=== PATIENT | male | born 1965 | race Caucasian/White ===

== ENCOUNTER 2021-03-14 08:47 | Inpatient (IN) | payer MEDICARE, MEDICAID, SELFPAY ==
[2021-03-14] VITALS (18 sets, daily range): BP systolic 103–152; BP diastolic 48–86; PULSE 78–102; RESP 13–26; TEMP 36.3–37.3; O2SAT 90–100; BMI 26.5
--- NOTE | ~2021-03-14 | CT_ITS ---
EXAMINATION: CT diagnostic chest w con DATE: 03/15/2021 16:29 INDICATION: Lung mass TECHNIQUE: Transaxial computed tomographic images of the chest were obtained after the administration of 75 cc of Omnipaque 350 intravenous contrast. The dose-length product (DLP) was 404.65 mGy-cm. Ite rative reconstruction was used. COMPARISON: None FINDINGS: There are airspace opacities of the right upper lobe, bilateral lower lobes, and right midd le lobe. There are small pleural effusions. No pneumothorax is identified. Calcified right hilar and mediastinal lymph nodes are consistent with old granulomatous disease. There is mild mediastinal lymp hadenopathy. The heart size is normal. Calcified coronary artery atherosclerosis is noted. There is a small pericardial effusion. Enlarged gastrohepatic ligament lymph nodes measure up to 1.8 cm. Puncta te calcifications in an otherwise normal spleen likely represent healed granulomatous disease. There is moderate thoracic spondylosis. IMPRESSION: 1. CT findings consistent with multifocal pneumonia. Recommend follow-up imaging after appropriate th erapy as long opacities could obscure malignancy. 2. Mediastinal and upper abdominal lymphadenopathy, likely reactive. Attention on follow-up examinati ons is recommended. Reviewed, dictated and finalized at location A. IMPRESSION: 1. CT findings consistent with multifocal pneumonia. Recommend follow-up imagin g after appropriate therapy as long opacities could obscure malignancy. 2. Mediastinal and upper abdominal lymphadenopathy, likely reactive. Attention on follow-up examinations is recommended.
--- NOTE | ~2021-03-14 | XR_ITS ---
EXAMINATION: XR lumbar spine 2-3V EXAM DATE: 03/15/2021 08:47 INDICATION: Mid and low back pain. History of cancer. TECHNIQUE: Lumber spine frontal, lateral, lateral L5-S1 projections for interpretation. There is no prior study for comparison. FINDINGS: There is mild lumbar levoscoliosis. There is moderate disc disease at L5-S1, mild to moder ate at L4-5 and mild at the levels above. There is moderate lower lumbar facet arthropathy. The verte bral bodies are aligned in the AP dimension. Mild aortic arterial sclerosis. The vertebral body heigh ts are maintained. Sacrum, sacroiliac joints, sacral arcuate lines are intact. IMPRESSION: 1. Moderate lower lumbar spondylosis. 2. No acute findings. Reviewed, dictated and finalized at location A.
--- NOTE | ~2021-03-14 | XR_ITS ---
EXAMINATION: XR chest 2V DATE: 03/17/2021 08:48 INDICATION: Pneumonia. TECHNIQUE: Frontal and lateral views of the chest were obtained. COMPARISON: Chest single view 03/15/2021, chest CT 03/15/2021 FINDINGS: The patient is rotated to his left. There is a mass in perihilar right upper lobe. A calcif ied right lung nodule and calcified right hilar lymph nodes are consistent with old granulomatous dis ease. There are small pleural effusions. There are airspace opacities at the lung bases. No pneumotho rax. The heart size is normal. There are old healed rib fractures. IMPRESSION: 1. Mass in perihilar right upper lobe, consistent with primary bronchogenic carcinoma. 2. Small pleural effusions. 3. Airspace opacities at the lung bases, consistent with atelectasis versus pneumonia. Reviewed, dictated and finalized at location A. IMPRESSION: 1. Mass in perihilar right upper lobe, consistent with primary bronchogenic car cinoma. 2. Small pleural effusions. 3. Airspace opacities at the lung bases, consistent with atelectasis versus pne umonia.
--- NOTE | ~2021-03-14 | CT_ITS ---
EXAMINATION: CT biopsy bone deep DATE: 03/16/2021 12:15 INDICATION: Lytic lesion of C7 spinous process. TECHNIQUE: The procedure including the risks, benefits, and alternatives was discussed with the patie nt. Risks discussed included bleeding and infection. The patient verbalized understanding of the risk s and agreed to proceed. The skin overlying the posterior neck was prepped and draped in usual steri le fashion. Anesthetic was administered with 1% lidocaine subcutaneously. A 16 gauge outer needle w as advanced under CT guidance to the C7 spinous process. An 18 gauge core biopsy needle was then used to obtain 3 core biopsy specimens. The mA was adjusted according to patient size. Iterative reconstr uction technique was employed. The dose-length product was 131.34 mGy-cm. The needle was removed and the entry site was cleaned and dressed. There were no immediate complications. FINDINGS: CT images demonstrate the outer needle tip adjacent to a mass in C7 spinous process. IMPRESSION: 1. CT-guided core needle biopsy of a mass in C7 spinous process. Reviewed, dictated and finalized at location A.
--- NOTE | ~2021-03-14 | US_ITS ---
EXAMINATION: US venous doppler [facility] DATE: 03/15/2021 10:41 INDICATION: Lower limb pain. TECHNIQUE: Grayscale ultrasound images without and with compression and Doppler ultrasound images of the bilateral lower extremity veins were obtained. COMPARISON: None. FINDINGS: The visualized portions of right common femoral vein, profunda (deep) femoral vein, femoral vein, pop liteal vein, peroneal veins, posterior tibial veins, and greater saphenous vein outflow are patent. The visualized portions of left common femoral vein, profunda femoral vein, femoral vein, popliteal v ein, peroneal veins, posterior tibial veins, and greater saphenous vein outflow are patent. IMPRESSION: 1. No deep venous thrombosis. Reviewed, dictated and finalized at location A.
--- NOTE | ~2021-03-14 | XR_ITS ---
EXAMINATION: XR thoracic spine 2V EXAM DATE: 03/15/2021 08:48 INDICATION: Mid and low back pain. History of cancer. TECHNIQUE: Frontal and lateral projections of the thoracic spine as well as lateral swimmers projecti on of the upper thoracic spine for interpretation. There is no prior study for comparison. FINDINGS: There is a right suprahilar masslike opacity. There are additional bilateral lower lobe med ial opacities with some air bronchograms, which could be atelectasis or pneumonia. There are calcifie d right hilar, mediastinal lymph nodes, granulomas. Mild thoracic spondylosis. The vertebral bodies a re aligned in the AP dimension. There are erosion IMPRESSION: 1. Mild thoracic spondylosis. 2. Right suprahilar masslike opacity. 3. Bilateral lower lobe air bronchograms, could be atelectasis or pneumonia. Reviewed, dictated and finalized at location A.
--- NOTE | ~2021-03-14 | XR_ITS ---
EXAMINATION: XR chest 1V DATE: 03/15/2021 08:48 INDICATION: Cough. Lung mass. TECHNIQUE: A single frontal view of the chest was obtained. COMPARISON: None. FINDINGS: Calcified right lung nodules and calcified right hilar lymph nodes are consistent with old granulomatous disease. There are patchy airspace opacities in all lobes, right worse than left. No pl eural effusion or pneumothorax. The heart size is normal. IMPRESSION: 1. Multifocal lung disease, consistent with pneumonia. Given the suspicion of cancer on outside imagi ng, consider chest CT with contrast. Reviewed, dictated and finalized at location A. IMPRESSION: 1. Multifocal lung disease, consistent with pneumonia. Given the suspicion of c ancer on outside imaging, consider chest CT with contrast.
--- NOTE | ~2021-03-14 | CT_ITS ---
EXAMINATION: CT brain wo con DATE: 03/14/2021 09:58 INDICATION: Recent diagnosis of spine tumors. Evaluate for metastasis. TECHNIQUE: Computed tomography (CT) of the head was performed without intravenous contrast. The mA wa s adjusted according to patient size. Iterative reconstruction technique was employed. Exam dose: 68 1.00 mGy-cm total exam DLP. COMPARISON: None FINDINGS: Bilateral carotid siphon internal carotid artery calcifications are noted. There is mild nonspecific diminished attenuation of the subcortical and periventricular cerebral whit e matter, likely due to chronic small vessel ischemic changes. No intracranial mass lesion or hemorrhage or cerebrovascular accident is evident. No midline shift or mass effect. No subdural or epidural hematoma. The orbits are unremarkable. Included mastoid air cells and paranasal sinuses are normally developed and aerated. No fracture or bone destruction of the cranial vault. IMPRESSION: Cerebral atherosclerosis and chronic small vessel ischemic changes of cerebral white mat ter No evidence of intracranial mass lesion Reviewed, dictated and finalized at Location A. . Reviewed, dictated and finalized at location B. IMPRESSION: Cerebral atherosclerosis and chronic small vessel ischemic changes of cerebral white matter No evidence of intracranial mass lesion
--- NOTE | 2021-03-14 09:22 | ED.GENADULT ---
HPI - General Adult General Chief complaint: Back Pain/Injury <Andrey Chris PA-C - Last Filed: 03/14/21 13:07> Stated complaint: BACK PAIN <Adnrey Chris PA-C - Last Filed: 03/14/21 13:07> Time Seen by Provider: 03/14/21 09:10 <Andrey Chris PA-C - Last Filed: 03/14/21 13:07> Source: patient and RN notes reviewed <Andrey Chris PA-C - Last Filed: 03/14/21 13:07> Mode of arrival: ambulatory <Andrey Chris PA-C - Last Filed: 03/14/21 13:07> Limitations: no limitations <Andrey Chris PA-C - Last Filed: 03/14/21 13:07> History of Present Illness HPI narrative: Patient is a 56-year-old male who presents to emergency department for evaluation of low back pain localized to the lumbar spine and right-sided SI region that has been ongoing is currently under the management of primary care for this notes that he had recent MRI or imaging is not exactly sure as to the type of imaging and is a poor historian. Patient lives with family. Patient presents per EMS was given fentanyl in route. Patient is followed by Dr. Long. Patient notes he has been taking hydrocodone ibuprofen and Flexeril for pain but notes they are not helping. Patient denies injury or trauma or recent illness. <Andrey Chris PA-C - Last Filed: 03/14/21 13:07> Related Data Allergies/adverse reactions: Allergies Allergy/AdvReac Type Severity Reaction Status Date / Time No Known Allergies Allergy Verified 03/14/21 08:59 <Andrey Chris PA-C - Last Filed: 03/14/21 13:07> Review of Systems Review of Systems: All systems reviewed & are unremarkable except as noted in HPI and below <Andrey Chris PA-C - Last Filed: 03/14/21 13:07> [facility] Past Medical History Medical History: Medical History (Updated 03/14/21 @ 13:59 by Tete Boss PA-C) Hypertension Tobacco abuse Type 2 diabetes mellitus <ANASTASIYA Jennings Last Filed: 03/14/21 13:07> Social History Social History: Social History (Updated 03/14/21 @ 13:57 by Tete Boss PA-C) Social History: The patient lives in [place]. He is on disability. Long-time smoker. Denies alcohol and illicit substance abuse. Mother Maude Zambrano is his surrogate decision maker. Code status: Full code. <Andrey Chris PA-C - Last Filed: 03/14/21 13:07> Exam Narrative: Exam Narrative: GENERAL: Well-appearing, well-nourished, uncomfortable and in no acute distress. HEAD: Normocephalic, atraumatic. EYES: PERRLA and EOMI. ENT: Nares clear, no rhinorrhea or epistaxis. Mucous membranes moist. NECK: Supple. No adenopathy or masses. CHEST: Clear to auscultation. No respiratory distress. No wheezes rales or rhonchi HEART: Regular rate and rhythm. No murmur heard. Normal peripheral pulses. ABDOMEN: Soft, nontender, nondistended EXTREMITIES: Normal range of motion. No edema. Tenderness of the lumbar spine and right SI region no deformities no rash. SKIN: Warm, dry, no rash. NEURO: No focal deficits. Alert and oriented x3. Neurovascularly intact. Capillary refill less than 2 seconds. Cranial nerves II through XII grossly intact. Motor and sensory intact and symmetrical in the extremities. PSYCH: Normal mood and affect. <Andrey Chris PA-C - Last Filed: 03/14/21 13:07> Course Course Emergency Course: Patient was evaluated found to have GI bleed with anemia metastatic cancer with likely lung primary, patient's primary care was consulted who was kind enough to send the imaging that he had which showed metastatic bone disease with a lung mass, patient will be transfused 2 units of blood given Protonix and placed on a Protonix drip, patient has been given pain medication and will be placed in hospital to the IMU with multiple consults and staging of his cancer. Patient at this time is in the room no distress with his mother present and agrees to come into the hospital given his weakness and
[2021-03-14] MEDS: SODIUM CHLORIDE 0.9% IV 1,000 ML 999 ML IV CONT (10:06)
[2021-03-14] MEDS: LIDOCAINE 5% PATCH 1 PATCH TRANSDERM (10:06)
[2021-03-14 10:18] LABS: Add Urine Microscopic? YES; Appearance Urine Clear (Clear); Bilirubin Urine Negative (Negative); Blood Urine Negative (Negative); Color Urine Yellow (Yellow); Glucose Urine UA Negative (Negative); Ketones Urine Trace mg/dL (Negative); Leukocyte Esterase Ur Negative LEU/UL (Negative); Mucus Urine Rare /lpf; Nitrate Urine Negative (Negative); Protein Urine Negative (Negative); RBC Urine 0-2 /hpf (0-2); Specific Grav Ur 1.018 (1.001-1.035); Squamous Epithelial Cell Urine Rare /hpf (Few); Urobilinogen Urine Negative mg/dL (<2.0); WBC Urine 0-3 /hpf
[2021-03-14 10:34] LABS: Amphetamine Screen Urine Negative (Negative); Barbiturate Screen Urine Negative (Negative); Benzodiazepines Screen Urine Negative (Negative); Cannabinoid Screen Urine Negative (Negative); Cocaine Screen Urine Negative (Negative); Methadone Screen Urine Negative (Negative); Opiate Screen Urine Positive (Negative); Phencyclidine Screen Urine Negative (Negative)
[2021-03-14 10:41] LABS: Basophils Percent Auto 0.2 % (0.2-1.2); Eosinophils Percent Auto 0.2 % (0-4.4); Immature Granulocyte Absolute 0.09 K/mm3 (0.00-0.031); Immature Granulocyte Percent A 0.7 % (0-0.5); Lymphocytes Absolute Auto 2.04 K/mm3 (0.9-3.2); Lymphocytes Percent Auto 16.4 % (18.3-44.2); Mean Corpuscular HGB Conc 32.2 g/dl (32-36); Mean Corpuscular Hemoglobin 33.6 pg (26-34); Mean Corpuscular Volume 104.3 fl (80-100); Mean Platelet Volume 8.8 fl (7.4-10.4); Monocytes Absolute Auto 0.7 K/mm3 (0.1-0.6); Monocytes Percent Auto 5.4 % (2.6-8.5); Neutrophils Absolute Auto 9.6 K/mm3 (1.3-6.7); Neutrophils Percent Auto 77.1 % (45.5-73.1); Nucleated Red Blood Cells Perc 0.2 % (0.0-0.2); Platelet Count Result 336 k/mm3 (150-375); White Blood Count 12.4 K/mm3 (4.5-10.0)
[2021-03-14 10:54] LABS: Alanine Aminotransferase 13 U/L (4-50); Albumin Level 3.2 g/dL (3.5-5.1); Alkaline Phosphatase 47 U/L (38-126); Anion Gap 2 mmol/L (8-16); Aspartate Amino Transferase 18 U/L (17-59); Bilirubin,Total < 0.1 mg/dL (0.2-1.3); Blood Urea Nitrogen 37 mg/dL (9-20); Calcium 9.5 mg/dL (8.4-10.2); Carbon Dioxide 26 mmol/L (22-30); Chloride 112 mmol/L (98-107); Estimated CRCL calculation 82 ml/min; Estimated Glomerular Filt Rate > 60; Glucose 126 mg/dL (75-110); Hematocrit 14.6 % (42.0-52.0); Hemoglobin 4.7 g/dL (14.0-18.0); Sodium 140 mmol/L (137-145)
[2021-03-14] MEDS: MORPHINE SULFATE (*CRX) 2 MG/ML INJ IV PUSH (11:02)
[2021-03-14] MEDS: PANTOPRAZOLE SODIUM IV 40 MG VIAL 80 MG IV PUSH (12:10)
[2021-03-14] MEDS: PANTOPRAZOLE SODIUM IV 40 MG VIAL 80 MG (12:18)
[2021-03-14] MEDS: HYDROmorphone HCL INJ (*CRX) 1 MG/ML SYR 0.5 MG IV PUSH ×4 (12:43→21:58)
[2021-03-14] MEDS: TUBING, BLOOD PLUM PUMP TUBING 1 EACH XX (13:16)
[2021-03-14 13:48] LABS: Hematocrit 14.4 % (42.0-52.0); Hemoglobin 4.6 g/dL (14.0-18.0)
[2021-03-14] MEDS: SODIUM CHLORIDE 0.9% IV 250 ML 30 ML IV CONT ×2 (13:53→21:00)
--- NOTE | 2021-03-14 14:30 | PM.IMHP ---
H&P: HPI History of Present Illness Date/Time: 03/14/21 14:30 Chief Complaint: Back pain. Narrative: This is a 56-year-old male smoker with coronary artery disease status post stent x1, hypertension, hyperlipidemia, and diabetes who presented to the emergency department earlier today via EMS from home for evaluation of back pain. He has been having quite a bit of pain in his low back over the past couple of months and he has been taking 800 milligrams of ibuprofen 3 times a day, initially with some benefit but his pain have gotten worse over the past couple of weeks. It is my understanding that he had an MRI at [place] sometime recently which showed evidence of bony metastases and further workup revealed a lung mass of which he is in the process of setting up appointments to have that worked up. In any event he has been prescribed hydrocodone and muscle relaxers for his back pain but they have not provided him with any significant relief and so he continues to take ibuprofen. Today is back pain was so severe that he called the ambulance. He describes sharp shooting pain in his mid to low back, radiating down his legs. In the emergency department he was found to be profoundly anemic with a hemoglobin and hematocrit of 4.6 in 14.4% respectively and he is being admitted for further workup. With further questioning he does admit to having multiple to dark stools over the past 4 days or so. He has also felt lightheadedness and dizziness upon standing with shortness of breath and feelings of racing heart. He had perhaps some mild abdominal discomfort earlier in the week but nothing significant. He denies GERD symptoms, bloating, and history of ulcers. No chest or pleuritic pain. Review of Systems Review of Systems: Narrative: Twelve systems were reviewed with pertinent positives and negatives as per HPI. No fever, chills, or sweats. He denies recent cold and flu symptoms. No known exposure to those positive for COVID-19. He did not receive the COVID vaccination. He denies bloating, indigestion, nausea, and vomiting. No history of peptic ulcers. He has mild lower extremity edema. No orthopnea or PND. He denies calf pain. No history of venous thromboembolism. Except as documented, all other systems were reviewed and are negative. ON LICENSE OF [facility] Past Medical History Medical History (Updated 03/14/21 @ 19:58 by Tete Boss PA-C) Bipolar disorder Coronary artery disease History of stents. Hypertension Tobacco abuse Type 2 diabetes mellitus Surgical History Surgical History (Updated 03/14/21 @ 19:58 by Tete Boss PA-C) History of heart artery stent Social History Social History (Updated 03/14/21 @ 20:01 by Tete Boss PA-C) Social History: The patient lives in [place] and is currently staying with his mother. He is on disability. Long-time smoker, about a pack a day for at least 40 years. Previously drank about a 12 pack of beer a day however he has not drank in months. No illicit substance abuse. He designates his sister Em and his mother Maude Zambrano as his surrogate decision maker. Code status: Full code. Sexual Orientation (if Verbalized by the Patient): Straight or Heterosexual Meds Home Medications and Allergies Allergies Allergy/AdvReac Type Severity Reaction Status Date / Time No Known Allergies Allergy Verified 03/14/21 08:59 Vital Signs Vital Signs - 24 hr 03/14/21 08:52 03/14/21 13:18 03/14/21 13:34 Temperature 97.4 F L 98.5 F 98.2 F Pulse Rate 102 H 90 90 Respiratory Rate 13 20 20 Blood Pressure 112/56 L 135/62 103/48 L Pulse Oximetry 100 92 93 Exam Narrative: Exam Narrative: General: Well-developed male supine in bed in moderate pain. Weight: 84 kilograms. BMI: 26.6. HEENT: Normocephalic, atraumatic. PERRL, EOMI. Sclerae anicteric. Conjunctiva mildly injected. Oral mucosa moist. Poor dentition. Oropharynx clear. Neck: Supple. No lymphadenopath
[2021-03-14 15:01] LABS: Glucose Point of Care 144 mg/dl (65-105)
--- NOTE | 2021-03-14 16:51 | ADMIMU ---
This patient, Maykel Zambrano, was admitted to IMU status, and placed in Intensive Care Unit-1. Patient/family oriented to hospital policies and general routines including ID bracelet, bed and alarms, visiting hours, pain management, procedures, bathroom and other care routines, personal items, smoking policy, room service/diet, and visiting hours. Valuables list has been completed. Information on how to activate the Rapid Response Team has been discussed. Patient/Family are encouraged to report perceived risks to care and to ask questions if they do not understand what they are told or what they should do.
[2021-03-14] MEDS: SODIUM CHLORIDE 0.9% IV 250 ML 50 ML (17:06)
[2021-03-14] MEDS: LACTATED RINGERS 1,000 ML 75 ML IV CONT (19:29)
[2021-03-14] MEDS: FAMOTIDINE 20 MG/2 ML VIAL IV PUSH (20:23)
[2021-03-14 20:36] LABS: Mean Corpuscular HGB Conc 33.9 g/dl (32-36); Mean Corpuscular Volume 94.4 fl (80-100); Mean Platelet Volume 8.7 fl (7.4-10.4); Platelet Count Result 279 k/mm3 (150-375); Red Blood Count 1.97 M/mm3 (4.6-6.20); Red Cell Distribution Width 16.9 % (11.5-14.5); White Blood Count 12.1 K/mm3 (4.5-10.0)
[2021-03-14 20:40] LABS: Hemoglobin 6.3 g/dL (14.0-18.0)
[2021-03-14 20:41] LABS: Hematocrit 18.6 % (42.0-52.0)
[2021-03-14 20:49] LABS: Anion Gap 2 mmol/L (8-16); Blood Urea Nitrogen 26 mg/dL (9-20); Calcium 8.8 mg/dL (8.4-10.2); Carbon Dioxide 24 mmol/L (22-30); Chloride 111 mmol/L (98-107); Estimated CRCL calculation 119 ml/min; Estimated Glomerular Filt Rate > 60; Glucose 119 mg/dL (75-110); Magnesium 1.6 mg/dL (1.6-2.3); Potassium 2.8 mmol/L (3.4-5.0); Sodium 137 mmol/L (137-145)
[2021-03-14 21:54] LABS: Glucose Point of Care 109 mg/dl (65-105)
[2021-03-15] VITALS (23 sets, daily range): BP systolic 96–176; BP diastolic 58–87; PULSE 67–89; RESP 15–25; TEMP 36.6–37.2; O2SAT 92–98
[2021-03-15] MEDS: HYDROcodone/acetaminophen (*CRX) 5-325 MG TABLET 1 TAB PO ×3 (00:36→18:52)
[2021-03-15] MEDS: oxyCODONE HCL (*CRX) 5 MG TAB IR PO ×3 (00:59→20:56)
[2021-03-15] MEDS: HYDROmorphone HCL INJ (*CRX) 1 MG/ML SYR 0.5 MG IV PUSH ×3 (01:59→19:46)
[2021-03-15 04:44] LABS: Basophils Absolute Auto 0.1 K/mm3 (0.0-0.1); Basophils Percent Auto 0.4 % (0.2-1.2); Eosinophils Absolute Auto 0.1 K/mm3 (0-0.3); Eosinophils Percent Auto 0.5 % (0-4.4); Hematocrit 28.5 % (42.0-52.0); Hemoglobin 9.7 g/dL (14.0-18.0); Immature Granulocyte Percent A 1.5 % (0-0.5); Lymphocytes Absolute Auto 1.81 K/mm3 (0.9-3.2); Lymphocytes Percent Auto 13.9 % (18.3-44.2); Mean Corpuscular Hemoglobin 29.8 pg (26-34); Mean Corpuscular Volume 87.4 fl (80-100); Mean Platelet Volume 8.8 fl (7.4-10.4); Monocytes Absolute Auto 0.8 K/mm3 (0.1-0.6); Monocytes Percent Auto 6.5 % (2.6-8.5); Neutrophils Percent Auto 77.2 % (45.5-73.1); Nucleated Red Blood Cells Absolute Auto 0.1 K/mm3 (0.0-0.012); Nucleated Red Blood Cells Perc 0.6 % (0.0-0.2); Platelet Count Result 290 k/mm3 (150-375); Red Blood Count 3.26 M/mm3 (4.6-6.20)
[2021-03-15 05:12] LABS: Anion Gap 3 mmol/L (8-16); Blood Urea Nitrogen 22 mg/dL (9-20); Calcium 8.9 mg/dL (8.4-10.2); Carbon Dioxide 24 mmol/L (22-30); Chloride 110 mmol/L (98-107); Estimated CRCL calculation 119 ml/min; Estimated Glomerular Filt Rate > 60; Glucose 123 mg/dL (75-110); Potassium 3.2 mmol/L (3.4-5.0); Sodium 137 mmol/L (137-145)
[2021-03-15 07:56] LABS: Glucose Point of Care 119 mg/dl (65-105)
--- NOTE | 2021-03-15 08:25 | WPDANESEPPF ---
Anes - Initial Pre Proc Eval Procedure: Operation Date: 03/15/21 14:00 Proposed Procedures p Esophagogastroduodenoscopy - Robbie Ventura MD Date/Time: 03/15/21 08:25 Surgeon: Renee Gaona MD Pre Op Diagnosis: GI bleed/anemia Patient Data Age: 56 Gender: M Height: 1.78 m Weight: 85.6 kg Last Vital Signs Temp 36.8 C 03/15/21 07:49 Pulse 80 03/15/21 07:49 Resp 20 03/15/21 07:49 BP 150/76 H 03/15/21 07:49 Pulse Ox 98 03/15/21 07:49 Allergies Allergy/AdvReac Type Severity Reaction Status Date / Time No Known Allergies Allergy Verified 03/14/21 08:59 Laboratory Tests 03/14/21 03/14/21 03/14/21 10:05 10:05 10:33 WBC 12.4 K/mm3 H K/mm3 (4.5-10.0) RBC 1.40 M/mm3 L M/mm3 (4.6-6.20) Hgb 4.7 g/dL L* g/dL (14.0-18.0) Hct 14.6 % L* % (42.0-52.0) MCV 104.3 fl H fl (80-100) MCH 33.6 pg pg (26-34) MCHC 32.2 g/dl g/dl (32-36) RDW 15.0 % H % (11.5-14.5) Plt Count 336 k/mm3 k/mm3 (150-375) MPV 8.8 fl fl (7.4-10.4) Immature Gran % (Auto) 0.7 % H % (0-0.5) Neut % (Auto) 77.1 % H % (45.5-73.1) Lymph % (Auto) 16.4 % L % (18.3-44.2) [place] % (Auto) 5.4 % % (2.6-8.5) Eos % (Auto) 0.2 % % (0-4.4) Baso % (Auto) 0.2 % % (0.2-1.2) Lymph # (Auto) 2.04 K/mm3 K/mm3 (0.9-3.2) [place] # (Auto) 0.7 K/mm3 H K/mm3 (0.1-0.6) Eos # (Auto) 0.0 K/mm3 K/mm3 (0-0.3) Baso # (Auto) 0.0 K/mm3 K/mm3 (0.0-0.1) Abs Immat Gran (auto) 0.09 K/mm3 H K/mm3 (0.00-0.031) Absolute Neuts (auto) 9.6 K/mm3 H K/mm3 (1.3-6.7) Absolute Nucleated RBC 0.0 K/mm3 K/mm3 (0.0-0.012) Nucleated RBC % 0.2 % % (0.0-0.2) Sodium Potassium Chloride Carbon Dioxide Anion Gap BUN Creatinine Estim Creat Clear Calc Estimated GFR Glucose POC Capillary Glucose Calcium Magnesium Iron TIBC % Saturation Ferritin Total Bilirubin AST ALT Alkaline Phosphatase Lactate Dehydrogenase Total Protein Albumin Vitamin B12 Folate Urine Color Yellow (Yellow) Urine Appearance Clear (Clear) Urine pH 5.0 (5.0-9.0) Ur Specific [place] 1.018 (1.001-1.035) Urine Protein Negative mg/dL mg/dL (Negative) Urine Glucose (UA) Negative mg/dL mg/dL (Negative) Urine Ketones Trace mg/dL mg/dL (Negative) Ur Blood (Man) Negative (Negative) Urine Nitrate Negative (Negative) Urine Bilirubin Negative (Negative) Urine Urobilinogen Negative mg/dL mg/dL (<2.0) Leukocyte Esterase Rfl Negative MARIA ANTONIA/UL MARIA ANTONIA/UL (Negative) Urine RBC 0-2 /hpf /hpf (0-2) Urine WBC 0-3 /hpf /hpf Ur Squamous Epith Cells Rare /hpf /hpf (Few) Urine Mucus Rare /lpf /lpf Urine Opiates Screen Positive A (Negative) Urine Methadone Screen Negative (Negative) Ur Barbiturates Screen Negative (Negative) Ur Phencyclidine Scrn Negative (Negative) Ur Amphetamine Screen Negative (Negative) U Benzodiazepines Scrn Negative (Negative) Urine Cocaine Screen Negative (Negative) U Cannabinoids Screen Negative (Negative) Blood Type Antibody Screen Crossmatch 03/14/21 03/14/21 03/14/21 10:33 11:53 11:53 WBC RBC Hgb Hct MCV MCH MCHC
[2021-03-15 08:28] LABS: Hematocrit 28.3 % (42.0-52.0); Hemoglobin 9.6 g/dL (14.0-18.0)
[2021-03-15 12:18] LABS: Glucose Point of Care 124 mg/dl (65-105)
--- NOTE | 2021-03-15 12:56 | PC.NURSE ---
To GI Lab per [ stretcher], IV [ protonix infusing].
--- NOTE | 2021-03-15 12:57 | PDONCCN ---
[facility] - Date of Consult Date/Time: 03/15/21 12:57 Requesting Physician: Renee Gaona MD Primary Care Provider: Jayce Long, - Consult Narrative Reason for consult: Likely metastatic lung cancer Narrative: Maykel Zambrano is a 56 year old male with history of bipolar disorder, hyperlipidemia hypertension, diabetes and coronary artery disease presented with 3 months history of lower back pain with generalized weakness. He has been eating poorly and lost more than 10 lb weight. He denies any cough but does have some shortness of breath. Denies any hemoptysis. He does have some dark stool. Patient primary care physician ordered MRI of the lumbar spine due to the back pain on March 09 that showed multiple sites of bone metastasis. Patient had also had CT chest done on March 10 that showed 5.2 x 2.5 cm right upper lobe lung mass with right hilar lymphadenopathy. There was small pericardial effusion. Labs showed profound anemia with hemoglobin of 4.7. He has been complaining of excessive tiredness and fatigue. Review of Systems - Review of Systems All systems reviewed & are unremarkable except as noted in HPI and [facility] Medical History: Medical History (Last Updated 03/15/21 @ 08:26 by William Eagle MD) Acute GI bleeding Anemia Back pain Bipolar disorder Coronary artery disease History of stents. Hypertension Lung mass Metastasis Tobacco abuse Type 2 diabetes mellitus Surgical History: Surgical History (Last Updated 03/14/21 @ 19:58 by Tete Boss PA-C) History of heart artery stent - Social History Social History: Social History (Last Updated 03/14/21 @ 20:01 by Tete Boss PA-C) Sexual Orientation: Sexual Orientation (if Verbalized by the Patient): Straight or Heterosexual Meds Home Medications Medication Instructions Recorded Confirmed Type amlodipine 5 mg PO DAILY 03/15/21 03/15/21 History aripiprazole [Abilify] See Rx Instructions .ROUTE .COMPLEX 03/15/21 03/15/21 History aripiprazole [Abilify] See Rx Instructions .ROUTE .COMPLEX 03/15/21 03/15/21 History aspirin [Adult Aspirin] 81 mg PO DAILY 03/15/21 03/15/21 History atorvastatin 40 mg PO HS 03/15/21 03/15/21 History citalopram 20 mg PO DAILY 03/15/21 03/15/21 History clonidine HCl 0.1 mg PO BID PRN 03/15/21 03/15/21 History clopidogrel 75 mg PO DAILY 03/15/21 03/15/21 History hydroxyzine HCl 25 mg PO BID PRN 03/15/21 03/15/21 History metformin 500 mg PO BID 03/15/21 03/15/21 History metoprolol succinate 50 mg PO DAILY 03/15/21 03/15/21 History nifedipine 60 mg PO DAILY 03/15/21 03/15/21 History tramadol 50 mg PO QID PRN 03/15/21 03/15/21 History trazodone 50 mg PO HS PRN 03/15/21 03/15/21 History Allergies Allergy/AdvReac Type Severity Reaction Status Date / Time No Known Allergies Allergy Verified 03/14/21 08:59 Results - Labs CBC & Chem 7: 03/15/21 07:43 03/15/21 04:27 Labs: Short CBC 03/14/21 03/14/21 03/15/21 Range/Units 13:25 20:31 04:27 WBC 12.1 H 13.0 H (4.5-10.0) K/mm3 Hgb 4.6 L* 6.3 L* 9.7 L D (14.0-18.0) g/dL Hct 14.4 L* 18.6 L* 28.5 L (42.0-52.0) % Plt Count 279 290 (150-375) k/mm3 03/15/21 Range/Units 07:43 WBC (4.5-10.0) K/mm3 Hgb 9.6 L (14.0-18.0) g/dL Hct 28.3 L (42.0-52.0) % Plt Count (150-375) k/mm3 BMP 03/14/21 03/15/21 20:31 04:27 Sodium 137 137 Potassium 2.8 L* 3.2 L Chloride 111 H 110 H Carbon Dioxide 24 24 BUN 26 H D 22 H Creatinine 0.60 L 0.60 L Glucose 119 H 123 H Calcium 8.8 8.9 Assessment and Plan - Additional Plan Likely metastatic non-small cell lung cancer. Patient is a 56-year-old male who has been dealing with lower back pain for last 3 months duration. Patient primary care doctor ordered MRI of the lumbar spine that showed multiple bone metastasis. CT scan of the chest was done on March 10 that showed 5.2 x 2.5 cm right upper lobe lung mas
--- NOTE | 2021-03-15 12:58 | WPDGICN ---
Assessment and Plan Assessment and plan (1) Acute GI bleeding: Code(s): K92.2 - Gastrointestinal hemorrhage, unspecified Status: Acute Assessment and Plan: admitted to ICU on protonix drip will proceed with urgent EGD (2) Melena: Code(s): K92.1 - Melena Status: Acute Assessment and Plan: noted that he has been using a lot of ibuprofen because severe back pain (from metastatic disease apparently) s/p blood transfusion (3) Acute blood loss anemia: Code(s): D62 - Acute posthemorrhagic anemia Status: Acute Assessment and Plan: monitor for more signs of bleeding (4) Lung cancer metastatic to bone: Code(s): C34.90 - Malignant neoplasm of unspecified part of unspecified bronchus or lung; C79.51 - Secondary malignant neoplasm of bone Status: Acute Assessment and Plan: oncology on board now will need definitive biopsy of lung lesion (5) Back pain: Code(s): M54.9 - Dorsalgia, unspecified Status: Acute (6) Coronary artery disease: Code(s): I25.10 - Atherosclerotic heart disease of [place] coronary artery without angina pectoris Status: Inactive Assessment and Plan: hold plavix for now (7) Tobacco abuse: Code(s): Z72.0 - Tobacco use Status: Acute GI Consult Note Consult date/time: 03/15/21 12:58 Reason for consult: melena, acute blood loss anemia HPI: Maykel Zambrano is a 56 year old male with history of coronary artery disease status on plavix, hypertension, and diabetes with lower back pain radiation to his right leg for last 2 months, apparently had MRI at [facility] that showed bone metastases and further workup revealed a lung mass, just recently referred to see oncology. He has been dealing with severe pain and using 800 milligrams of ibuprofen 3 times a day for several weeks. He noted recently dark tarry stools, lightheadedness and dizziness upon standing with shortness of breath and feelings of racing heart. ER showed low hemoglobin 4.6, started on iv protonix and admitted to ICU, also blood transfusion. Denies previous GIB. Review of Systems Constitutional: Constitutional: Reports fatigue Eyes: Eyes: Reports no additional eye complaints ENT: Reports Normal hearing present Cardiovascular: Cardiovascular: Reports palpitations Respiratory: Respiratory: Reports dyspnea on exertion Gastrointestinal: Gastrointestinal: Reports melena Genitourinary: Genitourinary: Denies dysuria Musculoskeletal: Musculoskeletal: Reports back pain Integumentary/Breasts: Skin/Breast: Denies dry skin Neurologic: Reports system reviewed and no additional complaints, except as documented Psychiatric: Psychiatric: Reports no additional psychiatric complaints [facility] Past Medical History Medical History (Updated 03/15/21 @ 15:29 by Robbie Ventura MD) Acute blood loss anemia Acute GI bleeding Anemia Back pain Bipolar disorder Coronary artery disease History of stents. Hypertension Lung cancer metastatic to bone Lung mass Melena Metastasis Tobacco abuse Type 2 diabetes mellitus Surgical History Surgical History (Updated 03/15/21 @ 13:01 by Dima Kumar MD) History of heart artery stent Social History Social History (Updated 03/14/21 @ 20:01 by Tete Boss PA-C) Social History: The patient lives in [place] and is currently staying with his mother. He is on disability. Long-time smoker, about a pack a day for at least 40 years. Previously drank about a 12 pack of beer a day however he has not drank in months. No illicit substance abuse. He designates his sister Em and his mother Maude Zambrano as his surrogate decision maker. Code status: Full code. Sexual Orientation (if Verbalized by the Patient): Straight or Heterosexual Meds Home Medications and Allergies Home Medications Medication Instructions Recorded Confirmed Type amlodipine 5 mg PO DA
[2021-03-15] MEDS: LACTATED RINGERS 1,000 ML 150 ML IV CONT (13:20)
[2021-03-15 13:22] LABS: Glucose Point of Care 122 mg/dl (65-105)
--- NOTE | 2021-03-15 13:25 | WPDANESEPPF ---
Anes - Initial Pre Proc Eval Procedure: Operation Date: 03/15/21 14:00 Proposed Procedures p Esophagogastroduodenoscopy - Robbie Ventura MD Date/Time: 03/15/21 13:25 Surgeon: Renee Gaona MD Pre Op Diagnosis: GI bleed/anemia Patient Data Age: 56 Gender: M Height: 5 ft 10 in Weight: 85.6 kg Last Vital Signs Temp 97.8 F 03/15/21 13:10 Pulse 88 03/15/21 13:10 Resp 24 H 03/15/21 13:10 BP 176/85 H 03/15/21 13:10 Pulse Ox 94 03/15/21 13:10 Allergies Allergy/AdvReac Type Severity Reaction Status Date / Time No Known Allergies Allergy Verified 03/14/21 08:59 Home Medications Medication Instructions Recorded Confirmed Type amlodipine 5 mg PO DAILY 03/15/21 03/15/21 History aripiprazole [Abilify] See Rx Instructions .ROUTE .COMPLEX 03/15/21 03/15/21 History aripiprazole [Abilify] See Rx Instructions .ROUTE .COMPLEX 03/15/21 03/15/21 History aspirin [Adult Aspirin] 81 mg PO DAILY 03/15/21 03/15/21 History atorvastatin 40 mg PO HS 03/15/21 03/15/21 History citalopram 20 mg PO DAILY 03/15/21 03/15/21 History clonidine HCl 0.1 mg PO BID PRN 03/15/21 03/15/21 History clopidogrel 75 mg PO DAILY 03/15/21 03/15/21 History hydroxyzine HCl 25 mg PO BID PRN 03/15/21 03/15/21 History metformin 500 mg PO BID 03/15/21 03/15/21 History metoprolol succinate 50 mg PO DAILY 03/15/21 03/15/21 History nifedipine 60 mg PO DAILY 03/15/21 03/15/21 History tramadol 50 mg PO QID PRN 03/15/21 03/15/21 History trazodone 50 mg PO HS PRN 03/15/21 03/15/21 History Laboratory Tests 03/14/21 03/14/21 03/14/21 11:53 13:25 14:57 WBC RBC Hgb 4.6 g/dL L* g/dL (14.0-18.0) Hct 14.4 % L* % (42.0-52.0) MCV MCH MCHC RDW Plt Count MPV Immature Gran % (Auto) Neut % (Auto) Lymph % (Auto) Casey % (Auto) Eos % (Auto) Baso % (Auto) Lymph # (Auto) Casey # (Auto) Eos # (Auto) Baso # (Auto) Abs Immat Gran (auto) Absolute Neuts (auto) Absolute Nucleated RBC Nucleated RBC % Sodium Potassium Chloride Carbon Dioxide Anion Gap BUN Creatinine Estim Creat Clear Calc Estimated GFR Glucose POC Capillary Glucose 144 mg/dl H mg/dl (65-105) Calcium Magnesium Blood Type A Negative Antibody Screen Negative Crossmatch See Detail 03/14/21 03/14/21 03/14/21 20:31 20:31 21:53 WBC 12.1 K/mm3 H K/mm3 (4.5-10.0) RBC 1.97 M/mm3 L M/mm3 (4.6-6.20) Hgb 6.3 g/dL L* g/dL (14.0-18.0) Hct 18.6 % L* % (42.0-52.0) MCV 94.4 fl D fl (80-100) MCH 32.0 pg pg (26-34) MCHC 33.9 g/dl g/dl (32-36) RDW 16.9 % H % (11.5-14.5) Plt Count 279 k/mm3 k/mm3 (150-375) MPV 8.7 fl fl (7.4-10.4) Immature Gran % (Auto) Neut % (Auto) Lymph % (Auto) Casey % (Auto) Eos % (Auto) Baso % (Auto) Lymph # (Auto) Casey # (Auto) Eos # (Auto) Baso # (Auto) Abs Immat Gran (auto) Absolute Neuts (auto) Absolute Nucleated RBC Nucleated RBC % Sodium 137 mmol/L mmol/L (137-145) Potassium 2.8 mmol/L L* mmol/L (3.4-5.0) Chloride 111 mmol/L H mmol/L (98-107) Carbon Dioxide 24 mmol/L mmol/L (22-30) Anion Gap 2 mmol/L L mmol/L (8-16) BUN 26 mg/dL H D mg/dL (9-20) Creatinine 0.60 mg/dL L mg/dL (0.7-1.3) Estim Creat Clear Calc 119 m
[2021-03-15 13:42] LABS: Iron 84 ug/dL (49-181)
[2021-03-15] MEDS: BENZOCAINE (*SP) 60 ML SPRAY CAN (HURRICAINE) 1 SPRAY MUCOUS MEM (13:42)
[2021-03-15 13:46] LABS: Lactate Dehydrogenase 286 U/L (313-618)
[2021-03-15 13:54] LABS: Percent Iron Saturation 28 % (20-50)
--- NOTE | 2021-03-15 14:41 | PC.NURSE ---
Returned from GI Lab. Report received from [MARK Hicks @ [phone] ].
[2021-03-15 14:54] LABS: Folic Acid 15.7 ng/mL (2.76->20)
--- NOTE | 2021-03-15 17:14 | PM.IMPN ---
Progress Note: A&P Assessment and Plan (1) Profound anemia: Code(s): D64.9 - Anemia, unspecified Status: Acute Assessment and Plan: continue to monitor and transfuse as needed. Hemoglobin stable at present time. (2) Back pain: Code(s): M54.9 - Dorsalgia, unspecified Status: Acute Assessment and Plan: Pain is better with pain medications. Will continue to monitor. (3) Hypertension: Code(s): I10 - Essential (primary) hypertension Status: Acute Assessment and Plan: Stable on medications (4) Type 2 diabetes mellitus: Code(s): E11.9 - Type 2 diabetes mellitus without complications Status: Acute Assessment and Plan: stable on meds (5) Tobacco abuse: Code(s): Z72.0 - Tobacco use Status: Acute Assessment and Plan: Discussed and advised to quit smoking. (6) Hypokalemia: Code(s): E87.6 - Hypokalemia Status: Acute Assessment and Plan: Replace and monitor. Additional Plan The patient presents today with worsening back pain which is likely stemming from metastatic disease that was reportedly found on recent MRI although he has profound anemia. He has been taking ibuprofen and given his profound anemia it is likely that he has underlying gastritis, esophagitis, or even an ulcer that has been bleeding. He will be transfused to a stable hemoglobin and it is my understanding that Dr. Ventura (gastroenterology) has been consulted. He has been started on Protonix. We discussed the importance of avoiding NSAIDs. Analgesics available as needed for his back pain. Dr. Kumar has been consulted regarding the lung mass and evidence of spinal mets on MRI obtained at outside facility. Vital signs were reviewed and they are stable despite his severe anemia. Check hemoglobin A1c. Initiate sliding scale insulin, Accu-Cheks, and hypoglycemic protocol. Smoking cessation is encouraged and was discussed with the patient. He declines the need for nicotine patch. Consult noted. Will hemoglobin stable at present. Repeat labs in the morning. Potassium was replaced. Subjective Date/time seen: 03/15/21 17:14 Patient was seen during the rounds today. Feeling slightly better. Back pain is slightly better with pain medications. Mild shortness of breath no chest pain. Mood stable. Abdominal pain is decreased. Review of Systems Review of Systems: All systems reviewed & are unremarkable except as noted in HPI and below ( the history and physical) Exam Narrative: Exam Narrative: General: Well-developed male supine in bed in moderate pain. Weight: 84 kilograms. BMI: 26.6. HEENT: Normocephalic, atraumatic. PERRL, EOMI. Sclerae anicteric. Conjunctiva mildly injected. Oral mucosa moist. Poor dentition. Oropharynx clear. Neck: Supple. No lymphadenopathy or JVD. Respiratory: Respirations are even and nonlabored and he is speaking in full sentences. He has diminished breath sounds throughout with faint expiratory wheezes. Cardiovascular: Regular rate and rhythm with S1-S2. Gastrointestinal: Abdomen is soft, nontender, and nondistended with positive bowel sounds. Skin: Warm and dry. Nicotine stains on the fingers. Extremities: No cyanosis or clubbing. Trace pretibial edema bilaterally. Equivocal Rosemarie sign. Radial pulses 2+, pedal pulses decreased but palpable. Spine: He is tender to palpation in the paravertebral muscles in the lower thoracic and lumbar region. No midline vertebral tenderness. Neurological: Alert. Cranial nerves 2-12 are grossly intact. No gross focal deficits to casual conversation. Psychiatric: Pleasant and cooperative with normal mood and affect. Judgment and insight intact. Objective Data Vital Signs Vital Signs: Vital Signs - 24 hr 03/14/21 17:55 03/14/21 18:00 03/14/21 18:55 Temperature 37.1 C 37.3 C Pulse Rate 91 87 96 Respiratory Rate 24 H 21 H Blood Pressure 148/70 H
[2021-03-15 17:19] LABS: Glucose Point of Care 99 mg/dl (65-105)
[2021-03-15] MEDS: ONDANSETRON INJ 4 MG/2 ML VIAL IV PUSH (19:46)
[2021-03-15] MEDS: PANTOPRAZOLE SODIUM IV 40 MG VIAL IV PUSH (19:50)
[2021-03-15 20:57] LABS: Glucose Point of Care 124 mg/dl (65-105)
[2021-03-15] MEDS: ATORVASTATIN 40 MG TABLET PO (23:47)
[2021-03-15] MEDS: cloNIDine HCL 0.1 MG TABLET PO (23:49)
[2021-03-16] VITALS (12 sets, daily range): BP systolic 144–178; BP diastolic 73–86; PULSE 78–89; RESP 14–20; TEMP 36.4–37.1; O2SAT 93–98
[2021-03-16] MEDS: HYDROmorphone HCL INJ (*CRX) 1 MG/ML SYR 0.5 MG IV PUSH ×5 (03:45→21:20)
[2021-03-16 04:37] LABS: Hemoglobin 9.2 g/dL (14.0-18.0); Mean Corpuscular HGB Conc 34.1 g/dl (32-36); Mean Corpuscular Hemoglobin 29.9 pg (26-34); Mean Corpuscular Volume 87.7 fl (80-100); Mean Platelet Volume 8.7 fl (7.4-10.4); Platelet Count Result 307 k/mm3 (150-375); Red Blood Count 3.08 M/mm3 (4.6-6.20); Red Cell Distribution Width 18.3 % (11.5-14.5); White Blood Count 10.5 K/mm3 (4.5-10.0)
[2021-03-16 05:13] LABS: Alanine Aminotransferase 16 U/L (4-50); Albumin Level 2.8 g/dL (3.5-5.1); Alkaline Phosphatase 54 U/L (38-126); Anion Gap 2 mmol/L (8-16); Aspartate Amino Transferase 26 U/L (17-59); Bilirubin,Total 0.2 mg/dL (0.2-1.3); Blood Urea Nitrogen 13 mg/dL (9-20); Calcium 8.8 mg/dL (8.4-10.2); Carbon Dioxide 27 mmol/L (22-30); Chloride 106 mmol/L (98-107); Estimated CRCL calculation 119 ml/min; Estimated Glomerular Filt Rate > 60; Glucose 118 mg/dL (75-110); Sodium 135 mmol/L (137-145)
--- NOTE | 2021-03-16 05:39 | PC.NURSE ---
This patient, Maykel Zambrano, was received from ICU on 03/16/21 at 0539. Patient/family oriented to unit policies and routines
--- NOTE | 2021-03-16 07:18 | PM.IMPN ---
Progress Note: A&P Assessment and Plan (1) Profound anemia: Code(s): D64.9 - Anemia, unspecified Status: Acute Assessment and Plan: No acute bleeding. Hemoglobin stable at present time. Will transfuse (2) Back pain: Code(s): M54.9 - Dorsalgia, unspecified Status: Acute Assessment and Plan: Pain is better with pain medications. Will continue to monitor. (3) Hypertension: Code(s): I10 - Essential (primary) hypertension Status: Acute Assessment and Plan: Stable on medications (4) Type 2 diabetes mellitus: Code(s): E11.9 - Type 2 diabetes mellitus without complications Status: Acute Assessment and Plan: stable on meds (5) Tobacco abuse: Code(s): Z72.0 - Tobacco use Status: Acute Assessment and Plan: Discussed and advised to quit smoking. (6) Hypokalemia: Code(s): E87.6 - Hypokalemia Status: Acute Assessment and Plan: Replace and monitor. (7) Pneumonia: Code(s): J18.9 - Pneumonia, unspecified organism Status: Acute Assessment and Plan: Afebrile. Will continue antibiotics. (8) Lung cancer metastatic to bone: Code(s): C34.90 - Malignant neoplasm of unspecified part of unspecified bronchus or lung; C79.51 - Secondary malignant neoplasm of bone Status: Acute Assessment and Plan: Continue current treatment, stable on meds. Additional Plan The patient presents today with worsening back pain which is likely stemming from metastatic disease that was reportedly found on recent MRI although he has profound anemia. He has been taking ibuprofen and given his profound anemia it is likely that he has underlying gastritis, esophagitis, or even an ulcer that has been bleeding. He will be transfused to a stable hemoglobin and it is my understanding that Dr. Ventura (gastroenterology) has been consulted. He has been started on Protonix. We discussed the importance of avoiding NSAIDs. Analgesics available as needed for his back pain. Dr. Kumar has been consulted regarding the lung mass and evidence of spinal mets on MRI obtained at outside facility. Vital signs were reviewed and they are stable despite his severe anemia. Check hemoglobin A1c. Initiate sliding scale insulin, Accu-Cheks, and hypoglycemic protocol. Smoking cessation is encouraged and was discussed with the patient. He declines the need for nicotine patch. Consult noted. Will hemoglobin stable at present. Repeat labs in the morning. Potassium was replaced. IV antibiotics for number possible pneumonia. Repeat chest x-ray in the morning. Increase activity as tolerated. Subjective Date/time seen: 03/16/21 07:18 Patient was seen during the morning rounds today. Feeling slightly better. Decreased abdominal pain and nausea. He shortness of breath. No chest pain. Mood stable. Review of Systems Review of Systems: All systems reviewed & are unremarkable except as noted in HPI and below ( the history and physical) Exam Narrative: Exam Narrative: General: Well-developed male supine in bed in moderate pain. Weight: 84 kilograms. BMI: 26.6. HEENT: Normocephalic, atraumatic. PERRL, EOMI. Sclerae anicteric. Conjunctiva mildly injected. Oral mucosa moist. Poor dentition. Oropharynx clear. Neck: Supple. No lymphadenopathy or JVD. Respiratory: Respirations are even and nonlabored and he is speaking in full sentences. He has diminished breath sounds throughout with faint expiratory wheezes. Cardiovascular: Regular rate and rhythm with S1-S2. Gastrointestinal: Abdomen is soft, nontender, and nondistended with positive bowel sounds. Skin: Warm and dry. Nicotine stains on the fingers. Extremities: No cyanosis or clubbing. Trace pretibial edema bilaterally. Equivocal Rosemarie sign. Radial pulses 2+, pedal pulses decreased but palpable. Spine: He is tender to palpation in the paravertebral mu
[2021-03-16 08:30] LABS: Glucose Point of Care 130 mg/dl (65-105)
[2021-03-16 08:37] LABS: Prothrombin Time 14.2 Seconds (11.1-14.7)
[2021-03-16] MEDS: oxyCODONE HCL (*CRX) 5 MG TAB IR PO ×2 (09:04→17:38)
[2021-03-16] MEDS: METOPROLOL SUCCINATE EXT REL 50 MG TABCR PO (09:05)
[2021-03-16] MEDS: PANTOPRAZOLE SODIUM IV 40 MG VIAL IV PUSH (09:08)
[2021-03-16 12:10] LABS: Immunoglobulin A 72 mg/dL (70-400); Immunoglobulin G 396 mg/dL (700-1600)
[2021-03-16 12:27] LABS: Prostate Specific Antigen 0.3 ng/mL (< OR = 4.0)
--- NOTE | 2021-03-16 12:34 | WPDONCPN ---
Progress Note: A/P - Additional Plan Likely metastatic lung cancer. Patient had CT chest done that showed lytic lesion of the left 5th rib with pathological fracture and lytic leisure of C7 spinous process. There was a lytic lesion in manubrium of the sternum. There are right upper lobe airspace opacity likely primary malignancy. There was presence of mediastinal and upper abdominal lymphadenopathy. Patient is CT-guided bone biopsy done and pathology is pending. PSA was ordered and came back normal at 0.3. Myeloma testing was also ordered due to lytic lesions and pending. Normocytic anemia. This is likely secondary to bone marrow involvement with metastatic cancer. Iron studies normal. EGD finding showed gastritis and duodenal ulcer. Vitamin B12 is low. I will start him on vitamin B12 injection. - Time Spent With Patient Total time spent is greater than 50% in coordination of care (as documented) at patient's floor/unit and/or counseling patient: 15 - 25 minutes Subjective Interval history: Likely metastatic lung cancer Normocytic anemia Vitamin B12 deficiency Review of Systems - Review of Systems Patient is complaining of lower back pain and hip pain. He has been eating poorly. Denies any bleeding including melena hematochezia. No fevers and chills. No other new complaints. - Neurologic Reports system reviewed and no additional complaints, except as documented, Reports hearing normal Exam Vital signs: Temp Pulse Resp BP Pulse Ox 37.1 C 89 20 178/86 H 98 03/16/21 06:08 03/16/21 12:18 03/16/21 12:18 03/16/21 12:18 03/16/21 12:18 Narrative: Lungs are clear to auscultation bilaterally Cardiovascular regular rate rhythm no murmurs Abdomen soft nontender nondistended bowel sounds are positive Extremities no edema PN: Objective Data - Labs CBC & Chem 7: 03/16/21 04:22 03/16/21 04:22 Labs: Laboratory Results - last 24 hr 03/14/21 03/14/21 03/15/21 11:53 11:53 13:18 WBC RBC Hgb Hct MCV MCH MCHC RDW Plt Count MPV PT INR Sodium Potassium Chloride Carbon Dioxide Anion Gap BUN Creatinine Estim Creat Clear Calc Estimated GFR Glucose POC Capillary Glucose 122 H Calcium Iron 84 TIBC 305 % Saturation 28 Ferritin 171.00 Total Bilirubin AST ALT Alkaline Phosphatase Lactate Dehydrogenase 286 L Total Protein Albumin Prostate Specific Ag Vitamin B12 261.0 Folate 15.7 IgG IgA 03/15/21 03/15/21 03/16/21 17:14 20:54 04:22 WBC 10.5 H RBC 3.08 L Hgb 9.2 L Hct 27.0 L MCV 87.7 MCH 29.9 MCHC 34.1 RDW 18.3 H Plt Count 307 MPV 8.7 PT INR Sodium Potassium Chloride Carbon Dioxide Anion Gap BUN Creatinine Estim Creat Clear Calc Estimated GFR Glucose POC Capillary Glucose 99 124 H Calcium Iron TIBC % Saturation Ferritin Total Bilirubin AST ALT Alkaline Phosphatase Lactate Dehydrogenase Total Protein Albumin Prostate Specific Ag Vitamin B12 Folate IgG IgA 03/16/21 03/16/21 03/16/21 04:22 07:53 08:14 WBC RBC Hgb Hct MCV MCH MCHC RDW Plt Count MPV PT 14.2 INR 1.0 Sodium 135 L Potassium 3.0 L Chloride 106 Carbon Dioxide 27 Anion Gap 2 L BUN 13 D Creatinine 0.60 L Estim Creat Clear Calc 119 Estimated GFR > 60 Glucose 118 H POC Capillary Glucose 130 H Calcium 8.8 Iron TIBC % Saturation Ferritin Total Bilirubin 0.2 AST 26 ALT 16 Alkaline Phosphatase 54 Lactate Dehydrogenase Total Protein 5.0 L Albumin 2.8 L Prostate Specific Ag Vitamin B12 Folate IgG IgA 03/16/21 03/16/21 09:19 09:19 WBC RBC Hgb Hct MCV MCH MCHC RDW Plt
[2021-03-16 12:50] LABS: Glucose Point of Care 131 mg/dl (65-105)
--- NOTE | 2021-03-16 13:24 | WPDGIPROGNO ---
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)- probably related to nsaid's (2) Acute blood loss anemia: Code(s): D62 - Acute posthemorrhagic anemia Status: Acute Assessment and Plan: from gib, also he has metastatic disease and hematology on board to assess for other causes of anemia (3) Melena: Code(s): K92.1 - Melena Status: Acute Assessment and Plan: resolved, stable hb after transfusion (4) NSAID induced gastritis: Code(s): K29.60 - Other gastritis without bleeding; T39.395A - Adverse effect of other nonsteroidal anti-inflammatory drugs [NSAID], initial encounter Status: Acute Assessment and Plan: instructed to discontinue altogether he will need other form of pain meds (5) Lung cancer metastatic to bone: Code(s): C34.90 - Malignant neoplasm of unspecified part of unspecified bronchus or lung; C79.51 - Secondary malignant neoplasm of bone Status: Acute Assessment and Plan: he just had biopsy of lesion hem-onc on board (6) Back pain: Code(s): M54.9 - Dorsalgia, unspecified Status: Acute Subjective Date/time seen: 03/16/21 13:24 Interval history: egd yesterday found large non-bleeding duodenal ulcer, also esophagitis. Hb better after blood transfusion, still with pain in lumbar area/right buttock Review of Systems Review of Systems: All systems reviewed & are unremarkable except as noted in HPI and below Exam Const: General: no acute distress Other: still pain in low back HENMT: General nose exam: Normal nares present Eyes: General: appearance normal, both eyes and all related structures Neck: Neck: supple Resp: Auscultation: clear to auscultation bilaterally Cardio: Rate: regular rate GI: Inspection: non-distended GI Palp: Yes Soft to palpation and No Guarding due to palpation present (GI) Auscultation: normal bowel sounds Skin: Other: pale Neuro: Speech: normal speech Extrem: General: normal to inspection Psych: Mental Status: mental status grossly normal Objective Data Vital Signs Vital Signs: Vital Signs - 24 hr 03/15/21 14:00 03/15/21 14:02 03/15/21 14:12 Temperature Pulse Rate 67 82 82 Respiratory Rate 23 H 25 H Blood Pressure 96/58 L 111/72 Pulse Oximetry 93 95 03/15/21 16:00 03/15/21 19:41 03/15/21 20:00 Temperature 98.9 F 98 F Pulse Rate 86 88 85 Respiratory Rate 23 H 20 18 Blood Pressure 170/82 H 162/79 H 157/81 H Pulse Oximetry 97 95 92 03/15/21 23:56 03/16/21 03:49 03/16/21 06:08 Temperature 97.8 F 98 F 98.7 F Pulse Rate 88 80 83 Respiratory Rate 22 H 16 14 Blood Pressure 167/85 H 144/73 H 145/74 H Pulse Oximetry 92 93 94 03/16/21 08:00 03/16/21 09:05 03/16/21 10:11 Temperature Pulse Rate 80 80 Respiratory Rate 14 Blood Pressure Pulse Oximetry 94 93 03/16/21 12:17 03/16/21 12:18 Temperature Pulse Rate 89 89 Respiratory Rate 20 20 Blood Pressure 167/85 H 178/86 H Pulse Oximetry 97 98 Intake/Output Intake/Output: Intake & Output 03/13/21 03/14/21 03/15/21 03/16/21 23:59 23:59 23:59 23:59 Intake Total 2135 2877 387 Output Total 500 1600 525 Balance 1635 1277 -138 Meds/Results Medications: Active Medications Generic Name Dose Route Start Last Admin Trade Name Freq PRN Reason Stop Dose Admin Hydrocodone Bitart/Acetaminophen 1 tab 03/14/21 19:49 03/15/21 18:52 Hydrocodone/Acetaminophen (*Crx) 5-325 Mg Tablet PO 1 tab Q6H PRN Administration Pain Rated 4-6 Amlodipine Besylate 5 mg 03/16/21 09:00 Amlodipine Besylate 5 Mg Tablet PO DAILY CLAUDIA Aripiprazole 2 mg 03/16/21 09:00 03/16/21 09:06 Aripiprazole 2 Mg Tablet BY
--- NOTE | 2021-03-16 13:30 | WPDANESPN ---
Anes - Prog Note Post-Op Date/Time: 03/16/21 13:30 Cardiovascular status: normal Respiratory status: normal Airway patency: baseline Mental status: baseline Post-Op hydration status: normal Vital Signs: Last Vital Signs Temp 37.1 C 03/16/21 06:08 Pulse 89 03/16/21 12:18 Resp 20 03/16/21 12:18 BP 178/86 H 03/16/21 12:18 Pulse Ox 98 03/16/21 12:18 Pain Score (VAS): 0 I/O: Intake & Output 03/15/21 03/16/21 03/16/21 23:59 07:59 15:59 Intake Total 360 387 Output Total 350 525 Balance 10 -138 Laboratory Tests 03/16/21 04:22 03/16/21 04:22 03/14/21 03/14/21 03/15/21 11:53 11:53 17:14 WBC RBC Hgb Hct MCV MCH MCHC RDW Plt Count MPV PT INR Sodium Potassium Chloride Carbon Dioxide Anion Gap BUN Creatinine Estim Creat Clear Calc Estimated GFR Glucose POC Capillary Glucose 99 Calcium Iron 84 TIBC 305 % Saturation 28 Ferritin 171.00 Total Bilirubin AST ALT Alkaline Phosphatase Lactate Dehydrogenase 286 L Total Protein Albumin Fvztc-6-Aulutvole Pener-2-Onxhjlscf Iguw-3-Azjgpwsh Uzsz-9-Rzacfzwc Gamma Globulins Abnorm Protein Band 1 Abnorm Protein Band 3 PEP Interpretation Prostate Specific Ag Vitamin B12 261.0 Folate 15.7 IgG IgA IgM Serum Immunofixation 03/15/21 03/16/21 03/16/21 20:54 04:22 04:22 WBC 10.5 H RBC 3.08 L Hgb 9.2 L Hct 27.0 L MCV 87.7 MCH 29.9 MCHC 34.1 RDW 18.3 H Plt Count 307 MPV 8.7 PT INR Sodium 135 L Potassium 3.0 L Chloride 106 Carbon Dioxide 27 Anion Gap 2 L BUN 13 D Creatinine 0.60 L Estim Creat Clear Calc 119 Estimated GFR > 60 Glucose 118 H POC Capillary Glucose 124 H Calcium 8.8 Iron TIBC % Saturation Ferritin Total Bilirubin 0.2 AST 26 ALT 16 Alkaline Phosphatase 54 Lactate Dehydrogenase Total Protein 5.0 L Albumin 2.8 L Xtqtk-8-Oszedoxex Uudud-2-Ctupljfjc Nmzo-5-Cvgibnvz Llfx-5-Jojnclpw Gamma Globulins Abnorm Protein Band 1 Abnorm Protein Band 3 PEP Interpretation Prostate Specific Ag Vitamin B12 Folate IgG IgA IgM Serum Immunofixation 03/16/21 03/16/21 03/16/21 07:53 08:14 09:19 WBC RBC Hgb Hct MCV MCH MCHC RDW Plt Count MPV PT 14.2 INR 1.0 Sodium Potassium Chloride Carbon Dioxide Anion Gap BUN Creatinine Estim Creat Clear Calc Estimated GFR Glucose POC Capillary Glucose 130 H Calcium Iron TIBC % Saturation Ferritin Total Bilirubin AST ALT Alkaline Phosphatase Lactate Dehydrogenase Total Protein Pending Albumin Pending Wprqk-7-Axnctdhzg Pending Qyres-2-Alnegnfic Pending Rfjs-7-Mrzxzegl Pending Ayhu-6-Kuvsflol Pending Gamma Globulins Pending Abnorm Protein Band 1 Pending Abnorm Protein Band 3 Pending PEP Interpretation Pending Prostate Specific Ag Vitamin B12 Folate IgG IgA IgM Serum Immunofixation 03/16/21 03/16/21 03/16/21 09:19 09:19 09:19 WBC RBC Hgb Hct MCV MCH MCHC RDW Plt Count MPV PT INR Sodium Potassium Chloride Carbon Dioxide Anion Gap BUN Creatinine Estim Creat Clear Calc Estimated GFR Glucose POC Capillary Glucose Calcium Iron TIBC % Saturation Ferritin Total Bilirubin AST ALT Alkaline Phosphatase Lactate Dehydrogenase Total Protein Albumin Ftrlx-6-Tqrolazfx Nbqmy-1-Dfzeldgxa Ggao-6-Gnukuzzu Wbtk-6-Dtghmmvj Gamma Globulins Abnorm Protein Band 1 Abnorm Protein Band 3 PEP Interpretation Prostate Specific Ag 0.3 Vitamin B12 Folate IgG
[2021-03-16 13:34] LABS: Immunoglobulin M < 25 mg/dL (40-230)
[2021-03-16] MEDS: MAGNESIUM OXIDE 200 MG TABLET PO ×2 (16:38→20:13)
[2021-03-16 17:19] LABS: Glucose Point of Care 111 mg/dl (65-105)
[2021-03-16] MEDS: HYDROcodone/acetaminophen (*CRX) 5-325 MG TABLET 1 TAB PO (20:12)
[2021-03-16] MEDS: ATORVASTATIN 40 MG TABLET PO (20:12)
[2021-03-16] MEDS: PANTOPRAZOLE 40 MG TABLET PO (20:13)
[2021-03-16] MEDS: cloNIDine HCL 0.1 MG TABLET PO (20:14)
[2021-03-16 22:03] LABS: Glucose Point of Care 178 mg/dl (65-105)
[2021-03-17] MEDS: oxyCODONE HCL (*CRX) 5 MG TAB IR PO ×5 (00:25→20:45)
[2021-03-17] MEDS: HYDROmorphone HCL INJ (*CRX) 1 MG/ML SYR 0.5 MG IV PUSH ×5 (03:18→23:29)
[2021-03-17 06:00] VITALS: BP 180/83; PULSE 81; RESP 20; TEMP 36.5; O2SAT 95
[2021-03-17 06:31] LABS: Hematocrit 27.9 % (42.0-52.0); Hemoglobin 9.3 g/dL (14.0-18.0); Mean Corpuscular HGB Conc 33.3 g/dl (32-36); Mean Corpuscular Hemoglobin 30.4 pg (26-34); Mean Corpuscular Volume 91.2 fl (80-100); Mean Platelet Volume 8.9 fl (7.4-10.4); Platelet Count Result 312 k/mm3 (150-375); Red Blood Count 3.06 M/mm3 (4.6-6.20); Red Cell Distribution Width 18.6 % (11.5-14.5); White Blood Count 11.1 K/mm3 (4.5-10.0)
[2021-03-17 06:52] LABS: Alanine Aminotransferase 17 U/L (4-50); Albumin Level 2.9 g/dL (3.5-5.1); Alkaline Phosphatase 62 U/L (38-126); Anion Gap 3 mmol/L (8-16); Aspartate Amino Transferase 22 U/L (17-59); Bilirubin,Total 0.3 mg/dL (0.2-1.3); Blood Urea Nitrogen 12 mg/dL (9-20); Calcium 9.1 mg/dL (8.4-10.2); Carbon Dioxide 28 mmol/L (22-30); Chloride 104 mmol/L (98-107); Estimated CRCL calculation 119 ml/min; Estimated Glomerular Filt Rate > 60; Glucose 132 mg/dL (75-110); Sodium 135 mmol/L (137-145)
[2021-03-17 08:10] VITALS: PULSE 80
[2021-03-17] MEDS: MAGNESIUM OXIDE 200 MG TABLET PO ×2 (08:10→20:45)
[2021-03-17] MEDS: METOPROLOL SUCCINATE EXT REL 50 MG TABCR PO (08:10)
[2021-03-17] MEDS: PANTOPRAZOLE 40 MG TABLET PO ×2 (08:10→20:45)
[2021-03-17] MEDS: CYANOCOBALAMIN INJ 1,000 MCG/ML VIAL 1000 MCG IM (08:10)
[2021-03-17 09:02] VITALS: O2SAT 92
[2021-03-17] MEDS: NIFEdipine 30 MG TAB.ER.24 60 MG PO (10:27)
[2021-03-17] MEDS: amLODIPine BESYLATE 5 MG TABLET PO (10:27)
--- NOTE | 2021-03-17 13:15 | PM.IMPN ---
Progress Note: A&P Assessment and Plan (1) NSAID induced gastritis: Code(s): K29.60 - Other gastritis without bleeding; T39.395A - Adverse effect of other nonsteroidal anti-inflammatory drugs [NSAID], initial encounter Status: Acute (2) Duodenal ulcer: Code(s): K26.9 - Duodenal ulcer, unspecified as acute or chronic, without hemorrhage or perforation Status: Acute (3) Pneumonia: Code(s): J18.9 - Pneumonia, unspecified organism Status: Acute (4) Hypokalemia: Code(s): E87.6 - Hypokalemia Status: Acute (5) Lung cancer metastatic to bone: Code(s): C34.90 - Malignant neoplasm of unspecified part of unspecified bronchus or lung; C79.51 - Secondary malignant neoplasm of bone Status: Acute (6) Acute blood loss anemia: Code(s): D62 - Acute posthemorrhagic anemia Status: Acute (7) Melena: Code(s): K92.1 - Melena Status: Acute (8) Metastasis: Code(s): C79.9 - Secondary malignant neoplasm of unspecified site Status: Acute (9) Lung mass: Code(s): R91.8 - Other nonspecific abnormal finding of lung field Status: Acute (10) Bipolar disorder: Code(s): F31.9 - Bipolar disorder, unspecified Status: Acute (11) Hypertension: Code(s): I10 - Essential (primary) hypertension Status: Acute (12) Type 2 diabetes mellitus: Code(s): E11.9 - Type 2 diabetes mellitus without complications Status: Acute Additional Plan This is a 56-year-old male smoker with coronary artery disease status post stent x1, hypertension, hyperlipidemia, and diabetes who presented to the emergency department earlier today via EMS from home for evaluation of back pain. He has been having quite a bit of pain in his low back over the past couple of months and he has been taking 800 milligrams of ibuprofen 3 times a day, initially with some benefit but his pain have gotten worse over the past couple of weeks. It is my understanding that he had an MRI at [place] sometime recently which showed evidence of bony metastases and further workup revealed a lung mass of which he is in the process of setting up appointments to have that worked up. In any event he has been prescribed hydrocodone and muscle relaxers for his back pain but they have not provided him with any significant relief and so he continues to take ibuprofen. Today is back pain was so severe that he called the ambulance. He describes sharp shooting pain in his mid to low back, radiating down his legs. In the emergency department he was found to be profoundly anemic with a hemoglobin and hematocrit of 4.6 in 14.4% respectively and he is being admitted for further workup. With further questioning he does admit to having multiple to dark stools over the past 4 days or so. He has also felt lightheadedness and dizziness upon standing with shortness of breath and feelings of racing heart. He had perhaps some mild abdominal discomfort earlier in the week but nothing significant. He denies GERD symptoms, bloating, and history of ulcers. No chest or pleuritic pain. # sevre anemia: due to gi bleed. s/p transfusion. stable blood counts now. plavix held # GI bleed: s/p EGD: reflux esophagitis, hiatal hernia, gastritis, duodenal ulcer. likely NSAID induced. on ppi bid. # Recently diagnosed lung mass with evidence of spinal meds and left fift rib patholgoical fracutre with lytic lesin, lytic lsion C7 spinosus process, manubrium of sternum: CT chest on march 10 showed 5.2 x 2.5 cm righ upper lobe lung mass with right hilar lymphadenopathy. s/p ct guided bone biopsy of C& spinous process. path pending. heme onc on board. # CAD s/p stents in deneen apst # HTN: home med # HLP: home meds # Diabetes: SSI # bipolar disrder; abilify #back pain: mri recetly with multpile site of bone metastasis. # Multifocal pneumonia: on antibiotics wbc slightly elevated. continue fornow. ceftriaxone. will conitnue. # hypokale
[2021-03-17 14:00] VITALS: BP 150/74; PULSE 97; RESP 18; TEMP 36.7; O2SAT 92
[2021-03-17] MEDS: MAGNESIUM SULF 2 GM/WATER 50ML 2 GM/50 ML BAG IVPB (14:18)
[2021-03-17] MEDS: POTASSIUM CHLORIDE 20 MEQ TABLET 40 MEQ PO (14:20)
--- NOTE | 2021-03-17 16:17 | WPDONCPN ---
Progress Note: A/P - Additional Plan Likely metastatic lung cancer. This patient had bone biopsy performed and pathology remains pending. He will need to have a PET scan as an outpatient after confirmation of the diagnosis. Patient has my office information for follow-up with. Normocytic anemia. Continue vitamin B12 injection. Hemoglobin is stable. Myeloma test results are pending. - Time Spent With Patient Total time spent is greater than 50% in coordination of care (as documented) at patient's floor/unit and/or counseling patient: 15 - 25 minutes Subjective Interval history: Likely metastatic lung cancer Normocytic anemia Vitamin B12 deficiency Review of Systems - Review of Systems Patient pain is under little bit better control. He is able to eat better. Looks rested. No melena hematochezia. He had no bowel movement since admission. No other new complaint. - Neurologic Reports system reviewed and no additional complaints, except as documented, Reports hearing normal Exam Vital signs: Karely Gipson. Assessment of coma and impaired consciousness. A practical scale. Lancet 1974; 2:81-4. Narrative: Lungs are clear to auscultation bilaterally Cardiovascular regular rate rhythm no murmurs Abdomen soft nontender nondistended bowel sounds are positive Extremities no edema PN: Objective Data - Labs CBC & Chem 7: 03/17/21 06:16 03/17/21 06:16 Labs: Laboratory Results - last 24 hr 03/16/21 03/16/21 03/17/21 17:08 20:19 06:16 WBC 11.1 H RBC 3.06 L Hgb 9.3 L Hct 27.9 L MCV 91.2 MCH 30.4 MCHC 33.3 RDW 18.6 H Plt Count 312 MPV 8.9 Sodium Potassium Chloride Carbon Dioxide Anion Gap BUN Creatinine Estim Creat Clear Calc Estimated GFR Glucose POC Capillary Glucose 111 H 178 H Calcium Total Bilirubin AST ALT Alkaline Phosphatase Total Protein Albumin 03/17/21 06:16 WBC RBC Hgb Hct MCV MCH MCHC RDW Plt Count MPV Sodium 135 L Potassium 3.0 L Chloride 104 Carbon Dioxide 28 Anion Gap 3 L BUN 12 Creatinine 0.60 L Estim Creat Clear Calc 119 Estimated GFR > 60 Glucose 132 H POC Capillary Glucose Calcium 9.1 Total Bilirubin 0.3 AST 22 ALT 17 Alkaline Phosphatase 62 Total Protein 6.0 L Albumin 2.9 L
--- NOTE | 2021-03-17 17:10 | WPDGIPROGNO ---
Progress Note: A&P Assessment and Plan (1) Duodenal ulcer: Code(s): K26.9 - Duodenal ulcer, unspecified as acute or chronic, without hemorrhage or perforation Status: Acute Assessment and Plan: no more melena and probably main cause of anemia but he also has metastatic disease continue with protonix 40 mg bid (favor insole tape stitcher uco)- probably related to nsaid's (2) Acute blood loss anemia: Code(s): D62 - Acute posthemorrhagic anemia Status: Acute Assessment and Plan: from gib, also he has metastatic disease and hematology on board to assess for other causes of anemia hb stable, no more melena (3) Melena: Code(s): K92.1 - Melena Status: Acute Assessment and Plan: resolved, stable hb after transfusion (4) NSAID induced gastritis: Code(s): K29.60 - Other gastritis without bleeding; T39.395A - Adverse effect of other nonsteroidal anti-inflammatory drugs [NSAID], initial encounter Status: Acute Assessment and Plan: instructed to discontinue altogether he will need other form of pain meds (5) Lung cancer metastatic to bone: Code(s): C34.90 - Malignant neoplasm of unspecified part of unspecified bronchus or lung; C79.51 - Secondary malignant neoplasm of bone Status: Acute Assessment and Plan: he just had biopsy of lesion and path still pending hem-onc on board (6) Back pain: Code(s): M54.9 - Dorsalgia, unspecified Status: Acute Subjective Date/time seen: 03/17/21 17:10 Interval history: doing fair, still with pain no more GI bleeding, tolerating diet Review of Systems Review of Systems: All systems reviewed & are unremarkable except as noted in HPI and below Exam Const: General: no acute distress Other: still pain in low back HENMT: General nose exam: Normal nares present Eyes: General: appearance normal, both eyes and all related structures Neck: Neck: supple Resp: Auscultation: clear to auscultation bilaterally Cardio: Rate: regular rate GI: Inspection: non-distended GI Palp: Yes Soft to palpation and No Guarding due to palpation present (GI) Auscultation: normal bowel sounds Skin: Other: pale Neuro: Speech: normal speech Extrem: General: normal to inspection Psych: Mental Status: mental status grossly normal Objective Data Vital Signs Vital Signs: Vital Signs - 24 hr 05/20/21 20:00 03/16/21 20:17 03/16/21 22:00 Temperature 98.1 F 98.1 F Pulse Rate 83 83 83 Respiratory Rate 16 16 16 Blood Pressure 149/77 H 149/77 H Pulse Oximetry 98 98 98 03/16/21 22:25 03/17/21 06:00 03/17/21 08:10 Temperature 97.7 F Pulse Rate 81 80 Respiratory Rate 20 Blood Pressure 180/83 H Pulse Oximetry 94 95 03/17/21 09:02 03/17/21 14:00 Temperature 98.0 F Pulse Rate 97 Respiratory Rate 18 Blood Pressure 150/74 H Pulse Oximetry 92 92 Intake/Output Intake/Output: Intake & Output 03/14/21 03/15/21 03/16/21 03/17/21 23:59 23:59 23:59 23:59 Intake Total 2135 2877 1397 1190 Output Total 500 1600 925 680 Balance 1635 1277 472 510 Meds/Results Medications: Active Medications Generic Name Dose Route Start Last Admin Trade Name Freq PRN Reason Stop Dose Admin Hydrocodone Bitart/Acetaminophen 1 tab 03/14/21 19:49 03/16/21 20:12 Hydrocodone/Acetaminophen (*Crx) 5-325 Mg Tablet PO 1 tab Q6H PRN Administration Pain Rated 4-6 Amlodipine Besylate 5 mg 03/17/21 09:00 03/17/21 10:27 Amlodipine Besylate 5 Mg Tablet PO 5 mg DAILY CLAUDIA Administration Aripiprazole 2 mg 03/16/21 09:00 03/17/21 08:10 Aripiprazole 2 Mg Tablet BY MOUTH Not Given DAILY CLAUDIA Aripiprazole 5 mg 03/16/21 09:00 03/17/21 08:10 Aripiprazole 5 Mg Tablet BY MOUTH Not Given DAILY CLAUDIA Atorvastatin Calcium 40 mg 03/15/21 22:20 03/16/21 20:12 Atorvastatin 40 Mg Tablet PO 40 mg HS CLAUDIA Administration Citalopram Hydrobromide 20 mg 03/16/21 09:00 03/17/21
[2021-03-17] MEDS: ATORVASTATIN 40 MG TABLET PO (20:45)
[2021-03-17 22:00] VITALS: BP 135/75; PULSE 79; RESP 18; TEMP 36.7; O2SAT 93
[2021-03-18] MEDS: oxyCODONE HCL (*CRX) 5 MG TAB IR PO ×5 (03:07→20:22)
[2021-03-18] MEDS: HYDROmorphone HCL INJ (*CRX) 1 MG/ML SYR 0.5 MG IV PUSH ×5 (04:56→22:22)
[2021-03-18 06:00] VITALS: BP 150/81; PULSE 86; RESP 16; TEMP 36.6; O2SAT 92
[2021-03-18 08:02] LABS: Basophils Percent Auto 0.3 % (0.2-1.2); Eosinophils Percent Auto 0.3 % (0-4.4); Hematocrit 32.4 % (42.0-52.0); Hemoglobin 10.7 g/dL (14.0-18.0); Immature Granulocyte Absolute 0.03 K/mm3 (0.00-0.031); Immature Granulocyte Percent A 0.3 % (0-0.5); Lymphocytes Absolute Auto 1.01 K/mm3 (0.9-3.2); Lymphocytes Percent Auto 10.1 % (18.3-44.2); Mean Corpuscular Volume 90.8 fl (80-100); Mean Platelet Volume 8.9 fl (7.4-10.4); Monocytes Absolute Auto 0.7 K/mm3 (0.1-0.6); Monocytes Percent Auto 6.5 % (2.6-8.5); Neutrophils Absolute Auto 8.3 K/mm3 (1.3-6.7); Neutrophils Percent Auto 82.5 % (45.5-73.1); Platelet Count Result 417 k/mm3 (150-375); Red Blood Count 3.57 M/mm3 (4.6-6.20); Red Cell Distribution Width 18.3 % (11.5-14.5)
[2021-03-18 08:16] VITALS: PULSE 89
[2021-03-18] MEDS: NIFEdipine 30 MG TAB.ER.24 60 MG PO (08:16)
[2021-03-18] MEDS: MAGNESIUM OXIDE 200 MG TABLET PO ×2 (08:16→20:23)
[2021-03-18] MEDS: METOPROLOL SUCCINATE EXT REL 50 MG TABCR PO (08:16)
[2021-03-18] MEDS: amLODIPine BESYLATE 5 MG TABLET PO (08:18)
[2021-03-18 08:19] LABS: Anion Gap -1 mmol/L (8-16); Blood Urea Nitrogen 10 mg/dL (9-20); Carbon Dioxide 32 mmol/L (22-30); Chloride 102 mmol/L (98-107); Estimated CRCL calculation 119 ml/min; Estimated Glomerular Filt Rate > 60; Glucose 124 mg/dL (75-110); Magnesium 1.9 mg/dL (1.6-2.3); Sodium 133 mmol/L (137-145)
[2021-03-18] MEDS: PANTOPRAZOLE 40 MG TABLET PO ×2 (08:19→20:23)
[2021-03-18] MEDS: CYANOCOBALAMIN INJ 1,000 MCG/ML VIAL 1000 MCG IM (08:22)
--- NOTE | 2021-03-18 10:54 | PM.IMPN ---
Progress Note: A&P Assessment and Plan (1) NSAID induced gastritis: Code(s): K29.60 - Other gastritis without bleeding; T39.395A - Adverse effect of other nonsteroidal anti-inflammatory drugs [NSAID], initial encounter Status: Acute Assessment and Plan: Hemoglobin stable, will continue current treatment (2) Duodenal ulcer: Code(s): K26.9 - Duodenal ulcer, unspecified as acute or chronic, without hemorrhage or perforation Status: Acute Assessment and Plan: Hemoglobin stable will continue current treatment (3) Pneumonia: Code(s): J18.9 - Pneumonia, unspecified organism Status: Acute Assessment and Plan: Afebrile. Will continue antibiotics. (4) Hypokalemia: Code(s): E87.6 - Hypokalemia Status: Acute Assessment and Plan: Replace and monitor. (5) Lung cancer metastatic to bone: Code(s): C34.90 - Malignant neoplasm of unspecified part of unspecified bronchus or lung; C79.51 - Secondary malignant neoplasm of bone Status: Acute Assessment and Plan: Continue current treatment, stable on meds. (6) Acute blood loss anemia: Code(s): D62 - Acute posthemorrhagic anemia Status: Acute (7) Melena: Code(s): K92.1 - Melena Status: Acute (8) Metastasis: Code(s): C79.9 - Secondary malignant neoplasm of unspecified site Status: Acute (9) Lung mass: Code(s): R91.8 - Other nonspecific abnormal finding of lung field Status: Acute (10) Bipolar disorder: Code(s): F31.9 - Bipolar disorder, unspecified Status: Acute (11) Hypertension: Code(s): I10 - Essential (primary) hypertension Status: Acute Assessment and Plan: Stable on medications (12) Type 2 diabetes mellitus: Code(s): E11.9 - Type 2 diabetes mellitus without complications Status: Acute Assessment and Plan: stable on meds Additional Plan This is a 56-year-old male smoker with coronary artery disease status post stent x1, hypertension, hyperlipidemia, and diabetes who presented to the emergency department earlier today via EMS from home for evaluation of back pain. He has been having quite a bit of pain in his low back over the past couple of months and he has been taking 800 milligrams of ibuprofen 3 times a day, initially with some benefit but his pain have gotten worse over the past couple of weeks. It is my understanding that he had an MRI at [place] sometime recently which showed evidence of bony metastases and further workup revealed a lung mass of which he is in the process of setting up appointments to have that worked up. In any event he has been prescribed hydrocodone and muscle relaxers for his back pain but they have not provided him with any significant relief and so he continues to take ibuprofen. Today is back pain was so severe that he called the ambulance. He describes sharp shooting pain in his mid to low back, radiating down his legs. In the emergency department he was found to be profoundly anemic with a hemoglobin and hematocrit of 4.6 in 14.4% respectively and he is being admitted for further workup. With further questioning he does admit to having multiple to dark stools over the past 4 days or so. He has also felt lightheadedness and dizziness upon standing with shortness of breath and feelings of racing heart. He had perhaps some mild abdominal discomfort earlier in the week but nothing significant. He denies GERD symptoms, bloating, and history of ulcers. No chest or pleuritic pain. # sevre anemia: due to gi bleed. s/p transfusion. stable blood counts now. plavix held # GI bleed: s/p EGD: reflux esophagitis, hiatal hernia, gastritis, duodenal ulcer. likely NSAID induced. on ppi bid. # Recently diagnosed lung mass with evidence of spinal meds and left fift rib patholgoical fracutre with lytic lesin, lytic lsion C7 spinosus process, manubrium of sternum: CT chest on march 10
[2021-03-18 14:00] VITALS: BP 137/80; PULSE 84; RESP 18; TEMP 36.6; O2SAT 94
[2021-03-18 16:08] VITALS: O2SAT 94
[2021-03-18] MEDS: POTASSIUM CHLORIDE 20 MEQ TABLET.ER 40 MEQ PO (16:15)
[2021-03-18] MEDS: ATORVASTATIN 40 MG TABLET PO (20:22)
[2021-03-18 21:55] VITALS: O2SAT 93
[2021-03-18 22:00] VITALS: BP 144/78; PULSE 81; RESP 16; TEMP 36.5; O2SAT 92
[2021-03-19] MEDS: oxyCODONE HCL (*CRX) 5 MG TAB IR PO ×5 (01:46→20:39)
[2021-03-19] MEDS: cloNIDine HCL 0.1 MG TABLET PO ×2 (01:51→15:52)
[2021-03-19] MEDS: HYDROmorphone HCL INJ (*CRX) 1 MG/ML SYR 0.5 MG IV PUSH ×5 (04:12→22:22)
[2021-03-19] MEDS: hydrOXYzine HCL 25 MG TABLET PO (04:14)
[2021-03-19 06:00] VITALS: BP 157/88; PULSE 84; RESP 18; TEMP 36.4; O2SAT 94
[2021-03-19 06:33] LABS: Anion Gap 2 mmol/L (8-16); Blood Urea Nitrogen 12 mg/dL (9-20); Calcium 9.3 mg/dL (8.4-10.2); Carbon Dioxide 32 mmol/L (22-30); Chloride 101 mmol/L (98-107); Estimated CRCL calculation 104 ml/min; Estimated Glomerular Filt Rate > 60; Glucose 127 mg/dL (75-110); Potassium 3.1 mmol/L (3.4-5.0); Sodium 135 mmol/L (137-145)
[2021-03-19] MEDS: ARIPiprazole 2 MG TABLET BY MOUTH (08:10)
[2021-03-19] MEDS: amLODIPine BESYLATE 5 MG TABLET PO (08:10)
[2021-03-19] MEDS: POTASSIUM CHLORIDE 20 MEQ TABLET.ER 40 MEQ PO ×2 (08:10→17:29)
[2021-03-19] MEDS: ARIPiprazole 5 MG TABLET BY MOUTH (08:10)
[2021-03-19] MEDS: CITALOPRAM HYDROBROMIDE 20 MG TABLET PO (08:11)
[2021-03-19] MEDS: PANTOPRAZOLE 40 MG TABLET PO ×2 (08:12→22:21)
[2021-03-19] MEDS: NIFEdipine 30 MG TAB.ER.24 60 MG PO (08:13)
[2021-03-19] MEDS: MAGNESIUM OXIDE 200 MG TABLET PO ×2 (08:13→22:20)
[2021-03-19] MEDS: CYANOCOBALAMIN INJ 1,000 MCG/ML VIAL 1000 MCG IM (08:13)
[2021-03-19 08:14] VITALS: PULSE 82
[2021-03-19] MEDS: METOPROLOL SUCCINATE EXT REL 50 MG TABCR PO (08:14)
[2021-03-19] MEDS: POTASSIUM CHLORIDE 20 MEQ PACKET (FOR LIQUID) 40 MEQ PO (12:26)
--- NOTE | 2021-03-19 12:31 | P.PNIM_ITS ---
Progress Note: A&P Assessment and Plan (1) NSAID induced gastritis: Code(s): K29.60 - Other gastritis without bleeding; T39.395A - Adverse effect of other nonsteroidal anti-inflammatory drugs [NSAID], initial encounter Status: Acute Assessment and Plan: Hemoglobin stable, will continue current treatment (2) Duodenal ulcer: Code(s): K26.9 - Duodenal ulcer, unspecified as acute or chronic, without hemorrhage or perforation Status: Acute Assessment and Plan: Hemoglobin stable will continue current treatment (3) Pneumonia: Code(s): J18.9 - Pneumonia, unspecified organism Status: Acute Assessment and Plan: Afebrile. Will continue antibiotics. (4) Hypokalemia: Code(s): E87.6 - Hypokalemia Status: Acute Assessment and Plan: Replace and monitor. (5) Lung cancer metastatic to bone: Code(s): C34.90 - Malignant neoplasm of unspecified part of unspecified bronchus or lung; C79.51 - Secondary malignant neoplasm of bone Status: Acute Assessment and Plan: Continue current treatment, stable on meds. (6) Acute blood loss anemia: Code(s): D62 - Acute posthemorrhagic anemia Status: Acute (7) Melena: Code(s): K92.1 - Melena Status: Acute (8) Metastasis: Code(s): C79.9 - Secondary malignant neoplasm of unspecified site Status: Acute (9) Lung mass: Code(s): R91.8 - Other nonspecific abnormal finding of lung field Status: Acute (10) Bipolar disorder: Code(s): F31.9 - Bipolar disorder, unspecified Status: Acute (11) Hypertension: Code(s): I10 - Essential (primary) hypertension Status: Acute Assessment and Plan: Stable on medications (12) Type 2 diabetes mellitus: Code(s): E11.9 - Type 2 diabetes mellitus without complications Status: Acute Assessment and Plan: stable on meds Additional Plan This is a 56-year-old male smoker with coronary artery disease status post stent x1, hypertension, hyperlipidemia, and diabetes who presented to the emergency department earlier today via EMS from home for evaluation of back pain. He has been having quite a bit of pain in his low back over the past couple of months and he has been taking 800 milligrams of ibuprofen 3 times a day, initially with some benefit but his pain have gotten worse over the past couple of weeks. It is my understanding that he had an MRI at [place] sometime recently which showed evidence of bony metastases and further workup revealed a lung mass of which he is in the process of setting up appointments to have that worked up. In any ev ent he has been prescribed hydrocodone and muscle relaxers for his back pain but they have not provided him with any significant relief and so he continues to take ibuprofen. Today is back pain was so severe that he called the ambulance. He describes sharp shooting pain in his mid to low back, radiating down his legs. In the emergency department he was found to be profoundly anemic with a hemoglobin and hematocrit of 4.6 in 14.4% respectively and he is being admitted for further workup. With further questioning he does admit to having multiple to dark stools over the past 4 days or so. He has also felt lightheadedness and dizziness upon standing with shortness of breath and feelings of racing heart. He had perhaps some mild abdominal discomfort earlier in the week but nothing significant. He denies GERD symptoms, bloating, and history of ulcers. No chest or pleuritic pain. # sevre anemia: due to gi bleed. s/p transfusion.
[2021-03-19 14:00] VITALS: BP 148/85; PULSE 86; RESP 18; TEMP 36.8; O2SAT 94
[2021-03-19 15:19] LABS: Anion Gap 3 mmol/L (8-16); Blood Urea Nitrogen 12 mg/dL (9-20); Calcium 9.5 mg/dL (8.4-10.2); Carbon Dioxide 30 mmol/L (22-30); Chloride 102 mmol/L (98-107); Estimated CRCL calculation 119 ml/min; Estimated Glomerular Filt Rate > 60; Glucose 117 mg/dL (75-110); Potassium 4.2 mmol/L (3.4-5.0); Sodium 135 mmol/L (137-145)
[2021-03-19 20:00] VITALS: PULSE 84; RESP 18; O2SAT 95
[2021-03-19 21:34] VITALS: BP 131/79; PULSE 88; RESP 20; TEMP 37.2; O2SAT 94
[2021-03-19] MEDS: ATORVASTATIN 40 MG TABLET PO (22:20)
[2021-03-20] MEDS: oxyCODONE HCL (*CRX) 5 MG TAB IR PO ×3 (02:27→10:36)
[2021-03-20] MEDS: cloNIDine HCL 0.1 MG TABLET PO (02:34)
[2021-03-20] MEDS: HYDROmorphone HCL INJ (*CRX) 1 MG/ML SYR 0.5 MG IV PUSH ×3 (03:48→12:16)
[2021-03-20 06:00] VITALS: BP 151/82; PULSE 84; RESP 18; TEMP 36.6; O2SAT 95
[2021-03-20 06:06] LABS: Albumin 2.4 g/dL (3.8-4.8); Alpha 1 Globulin 0.6 g/dL (0.2-0.3); Alpha 2 Globulin 0.8 g/dL (0.5-0.9); Beta 1 Globulin 0.4 g/dL (0.4-0.6); Gamma Globulin 0.4 g/dL (0.8-1.7); Protein, Total 4.8 g/dL (6.1-8.1)
[2021-03-20 08:11] VITALS: PULSE 72
[2021-03-20] MEDS: NIFEdipine 30 MG TAB.ER.24 60 MG PO (08:11)
[2021-03-20] MEDS: MAGNESIUM OXIDE 200 MG TABLET PO (08:11)
[2021-03-20] MEDS: ARIPiprazole 2 MG TABLET BY MOUTH (08:11)
[2021-03-20] MEDS: METOPROLOL SUCCINATE EXT REL 50 MG TABCR PO (08:11)
[2021-03-20] MEDS: CITALOPRAM HYDROBROMIDE 20 MG TABLET PO (08:11)
[2021-03-20] MEDS: ARIPiprazole 5 MG TABLET BY MOUTH (08:12)
[2021-03-20] MEDS: CYANOCOBALAMIN INJ 1,000 MCG/ML VIAL 1000 MCG IM (08:13)
[2021-03-20] MEDS: amLODIPine BESYLATE 5 MG TABLET PO (08:13)
[2021-03-20] MEDS: PANTOPRAZOLE 40 MG TABLET PO (08:13)
[2021-03-20] MEDS: POTASSIUM CHLORIDE 20 MEQ TABLET.ER 40 MEQ PO (08:14)
--- NOTE | 2021-03-20 08:29 | PM.DS ---
DS: Admitting Diagnosis Admitting Diagnosis Admitting Diagnosis: Gastritis DS: Discharge Diagnosis Discharge Diagnosis (1) NSAID induced gastritis: Code(s): K29.60 - Other gastritis without bleeding; T39.395A - Adverse effect of other nonsteroidal anti-inflammatory drugs [NSAID], initial encounter Status: Acute Assessment and Plan: Hemoglobin stable, will continue current treatment (2) Duodenal ulcer: Code(s): K26.9 - Duodenal ulcer, unspecified as acute or chronic, without hemorrhage or perforation Status: Acute Assessment and Plan: Hemoglobin stable will continue current treatment (3) Pneumonia: Code(s): J18.9 - Pneumonia, unspecified organism Status: Acute Assessment and Plan: Afebrile. Will continue antibiotics. (4) Hypokalemia: Code(s): E87.6 - Hypokalemia Status: Acute Assessment and Plan: Replace and monitor. (5) Lung cancer metastatic to bone: Code(s): C34.90 - Malignant neoplasm of unspecified part of unspecified bronchus or lung; C79.51 - Secondary malignant neoplasm of bone Status: Acute Assessment and Plan: Continue current treatment, stable on meds. (6) Acute blood loss anemia: Code(s): D62 - Acute posthemorrhagic anemia Status: Acute (7) Melena: Code(s): K92.1 - Melena Status: Acute (8) Metastasis: Code(s): C79.9 - Secondary malignant neoplasm of unspecified site Status: Acute (9) Lung mass: Code(s): R91.8 - Other nonspecific abnormal finding of lung field Status: Acute (10) Bipolar disorder: Code(s): F31.9 - Bipolar disorder, unspecified Status: Acute (11) Hypertension: Code(s): I10 - Essential (primary) hypertension Status: Acute Assessment and Plan: Stable on medications (12) Type 2 diabetes mellitus: Code(s): E11.9 - Type 2 diabetes mellitus without complications Status: Acute Assessment and Plan: stable on meds DS: Summary Hospital Course Reason for hospitalization: Gastritis Hospital Course: 56 years old male was admitted complained of having abdominal pain and generalized body ache. Patient was found to have gastritis and duodenitis. Patient hemoglobin was stable. Workup also showed patient has a lung mass with possible Mets to the bone. Patient was given pain medication narcotics. Patient potassium was low and was replaced. After discussion with the family patient discharged home in stable condition. Further workup of the lung mass will be done as an outpatient. Will also repeat potassium as an outpatient. Patient family is also considering hospice care. Referral was made with hospice. If family agrees the will be needed at patient house. Follow-up with oncology and primary care schedule. Time spent discussing smoking cessation with patient: 3 to 10 minutes Status at Discharge Cognitive/behavioral status at discharge: Stable Functional status at discharge: independent ambulation Overall status at discharge: patient is back to baseline Time Spent with Patient Time attestation: Total time spent providing and/or coordinating discharge services: Time spent: Less than 30 minutes Exam Narrative: Exam Narrative: General: Well-developed male supine in bed, no acute distress HEENT: Normocephalic, atraumatic. PERRL, EOMI. Sclerae anicteric. Neck: Supple. No lymphadenopathy or JVD. Respiratory: Respirations are even and nonlabored and he is speaking in full sentences. He has diminished breath sounds , rhonchi bialterlaly Cardiovascular: Regular rate and rhythm with S1-S2. Gastrointestinal: Abdomen is soft, nontender, and nondistended with positive bowel sounds. Skin: Warm and dry. Nicotine stains on the fingers. Extremities: No cyanosis or clubbing. no edema Neurological: Alert. Cranial nerves 2-12 are grossly intact. No gross focal deficits to casual conversation. Psyc
== END 2021-03-20 12:50 | disposition home or self-care (01) | DRG 988 ==
LOC: ANHED 13:55 → ANHICU 03-15 03:35 → ANH3MEDSUR 03-16 11:45 → ANHICU 03-22 17:29
PROVIDERS: Emergency Medicine Emergency Medical Services; Internal Medicine; Internal Medicine Gastroenterology; Internal Medicine Hematology & Oncology; Physician Assistant; Admitting Provider Family Medicine; Emergency Provider Emergency Medicine; PCP Internal Medicine; Visit Provider Internal Medicine
PROC: 0DJ08ZZ Inspection of Upper Intestinal Tract, Via Natural or Artificial Opening Endoscopic (ICD-10-PCS; CPT 43235; principal; 2021-03-15 14:00)
DX: K26.4 Chronic or unspecified duodenal ulcer with hemorrhage (principal); C34.90 Malignant neoplasm of unspecified part of unspecified bronchus or lung; C79.51 Secondary malignant neoplasm of bone; D62 Acute posthemorrhagic anemia; M84.58XA Pathological fracture in neoplastic disease, other specified site, initial encounter for fracture; E78.5 Hyperlipidemia, unspecified; I10 Essential (primary) hypertension; E11.9 Type 2 diabetes mellitus without complications; Z72.0 Tobacco use; I25.10 Atherosclerotic heart disease of native coronary artery without angina pectoris; F31.9 Bipolar disorder, unspecified; E87.6 Hypokalemia; K29.70 Gastritis, unspecified, without bleeding; T39.395A Adverse effect of other nonsteroidal anti-inflammatory drugs [NSAID], initial encounter
CPT/HCPCS: 20225; 36415; 36430; 70450; 71045; 71046; 71260; 72070; 72100; 77012; 80048; 80053; 80307; 81001; 81210; 81235; 81275; 81276; 82607; 82728; 82746; 82784; 82948; 83540; 83550; 83615; 83735; 84153; 84155; 84165; 85014; 85018; 85025; 85027; 85610; 86334; 86850; 86900; 86901; 86923; 87081; 88271; 88274; 88305; 88307; 88311; 88313; 88342; 88360; 88381; 93970; 96361; 96365; 96375; 99285; A9270; C9113; J0131; J0696; J1170; J2270; J2405; J2704; J3420; J3475; J3480; J7030; J7050; J7060; J7120; P9016; Q9967

== ENCOUNTER 2021-04-12 15:30 | Outpatient (CLI) | payer MEDICARE, MEDICAID, SELFPAY ==
--- NOTE | ~2021-04-12 | XR_ITS ---
XR chest 2V DATE: 04/12/2021 15:58 INDICATION: Diminished oxygen saturation TECHNIQUE: AP and lateral views COMPARISON: 03/17/2021 2 view chest 03/15/2021 CT chest FINDINGS: There is a right angel Cath catheter with tip in right atrium. There is a large mass densi ty of the right upper lobe. There is discoid atelectasis or scarring overlying the left perihilar area. There is minimal residual infiltrate or atelectasis in the lower lung zones. Destructive lesion of the posterior left fifth rib, consistent with metastatic disease. IMPRESSION: Large mass density, right upper lobe Lytic metastasis of the left fifth rib Interval placement of right Port-A-Cath catheter in right atrium Discoid atelectasis or scarring overlying left perihilar area Minimal residual infiltrate or atelectasis at the lung bases Reviewed, dictated and finalized at location A.
== END 2021-04-12 15:31 | disposition home or self-care (01) ==
PROVIDERS: PCP Internal Medicine; Visit Provider Internal Medicine
DX: R30.9 Painful micturition, unspecified (principal); R79.81 Abnormal blood-gas level; R91.8 Other nonspecific abnormal finding of lung field
CPT/HCPCS: 71046; 87086

== ENCOUNTER 2021-04-19 11:40 | Inpatient (IN) | payer MEDICARE, MEDICAID, SELFPAY ==
[2021-04-19] VITALS (27 sets, daily range): BP systolic 86–120; BP diastolic 63–77; PULSE 80–92; RESP 15–23; TEMP 36.6–37.3; O2SAT 90–97; BMI 24.0
--- NOTE | ~2021-04-19 | MR_ITS ---
EXAMINATION: MR brain/brain stem wo/w con DATE: 04/20/2021 13:20 INDICATION: Metastatic lung cancer. Altered mental status. TECHNIQUE: Magnetic resonance imaging (MRI) of the brain and brainstem was performed without and with 14 mL MultiHance intravenous contrast. Sequences included sagittal and axial T1-weighted FSE, axial diffusion-weighted FS EPI, axial T2*-weighted GRE, axial T2-weighted FLAIR Propeller, and axial T2-we ighted Propeller. Postcontrast sequences included axial, sagittal, and coronal T1-weighted FSE. Appar ent diffusion coefficient (ADC) maps were created. COMPARISON: Head CT 04/19/2021 FINDINGS: There are punctate acute infarcts in the right frontal lobe, left parietal lobe, left occip ital lobe, and right cerebellum. There are scattered areas of nonspecific increased T2-weighted signa l intensity in the cerebral white matter. There is no intracranial hemorrhage or abnormal mass lesion . The ventricles are normal in size. The orbits are normal. There is mild mucosal thickening in left maxillary sinus. The mastoid air cells are normal. IMPRESSION: 1. Four punctate acute infarcts in the brain. 2. Mild nonspecific cerebral white matter disease, which likely represents chronic small vessel ische jacklyn disease. 3. No evidence of metastatic disease. Reviewed, dictated and finalized at location A. IMPRESSION: 1. Four punctate acute infarcts in the brain. 2. Mild nonspecific cerebral white matter disease, which likely represents quality process auditor luis small vessel ischemic disease. 3. No evidence of metastatic disease.
--- NOTE | ~2021-04-19 | CT_ITS ---
EXAMINATION: CT brain wo con INDICATION: Metastatic lung cancer COMPARISON: 03/14/2021 TECHNIQUE: Standard unenhanced head CT. The dose-length product (DLP) was 681.00 mGy-cm. The mA was a djusted according to patient size. Iterative reconstruction technique was employed. FINDINGS: There is no intracranial hemorrhage or acute infarction. No definite abnormal mass lesion i s identified. The ventricles are normal. There is no abnormal mass effect or midline shift. The garay- white matter differentiation is normal. The basal cisterns are patent. The orbits are normal. The par anasal sinuses, mastoids and calvarium are normal. IMPRESSION: 1. No acute intracranial abnormality or definite evidence of intracranial metastasis. Reviewed, dictated and finalized at location A. IMPRESSION: 1. No acute intracranial abnormality or definite evidence of intracranial metas tasis.
--- NOTE | ~2021-04-19 | CT_ITS ---
EXAMINATION: CT chest abdomen pelvis w con DATE: 04/19/2021 13:36 INDICATION: Metastatic lung cancer TECHNIQUE: Transaxial computed tomographic images of the chest, abdomen, and pelvis were obtained aft er the administration of 100 cc of Omnipaque 350 intravenous contrast. The dose-length product (DLP) was 776.53 mGy-cm. Automated exposure control and iterative reconstruction technique were employed. COMPARISON: 03/15/2021 FINDINGS: CHEST CT: There is been interval progression of the previously described right upper lobe opacities which are n ow a confluence 7.4 x 5.0 cm mass. There is a moderate size right pleural effusion. There is a 5.6 x 2.6 cm pleural-based mass in the posteromedial aspect of the left upper lobe which results in lytic d estruction of the left fifth rib. There are pathologically enlarged right paratracheal, left upper pa ratracheal, and lower paraesophageal lymph nodes. Multiple pleural-based metastases are noted posteri prakash on the right which measure up to 3.7 cm. There are lytic osseous lesions of the the manubrium of the sternum, the medial right 10th rib, and the T5 vertebral body. A right internal jugular Port-A-C ath ends with its tip in the proximal right atrium. ABDOMEN/PELVIS CT: There is been interval development of innumerable metastases throughout all lobes of the liver, the l argest of which measures 2.8 cm. There is a 1.3 cm hypoattenuating lesion in the upper pole of the sp saúl suspicious for metastatic disease. There our pathologically enlarged upper abdominal lymph nodes , the largest of which measures 3.3 cm in the gastrohepatic ligament. There is a 4.5 x 2.6 cm soft ti ssue mass of the right flank involving the abdominal wall. The pancreas, gallbladder, and adrenal gla nds are normal. There is a 9 mm cyst of the right kidney. Nonobstructing stones of the kidneys measur e up to 3 mm on the left. There is no free intraperitoneal gas or evidence of bowel obstruction. Ther e is calcified atherosclerosis of the aorta and many of the other arteries. There are lytic lesions o f the L3, L4, and L5 vertebral bodies as well as the right sacrum and right ilium which demonstrate p athologic fracture. IMPRESSION: 1. Interval progression of metastatic adenocarcinoma as evidenced by significant enlargement of the r ight upper lobe mass, significant worsening of widespread osseous metastatic disease with pathologic fractures, development of malignant right pleural effusion, development of innumerable liver metastas es, and thoracic and upper abdominal lymphadenopathy. Reviewed, dictated and finalized at location A. IMPRESSION: 1. Interval progression of metastatic adenocarcinoma as evidenced by significan t enlargement of the right upper lobe mass, significant worsening of widespread osseous metastatic disease with pathologic fractures, development of malignant right pleural effusion, development of innumerable liver metastases, and thora cic and upper abdominal lymphadenopathy.
--- NOTE | ~2021-04-19 | XR_ITS ---
XR chest 2V 04/19/2021 12:13 Indication: Weakness and shortness of breath Procedure: AP and lateral views of the chest Comparison: Comparison to multiple prior studies sequentially, with oldest reviewed study dated 03/15. Findings: There is a masslike density right upper lung which has increased in size compared with 03/15. There is masslike density along the posterior pleural surface on the lateral view of the mid t horax. Portacatheter tip in the condyle aspect of the SVC near the cavoatrial junction. There are cor onary artery stents. Left lung clear. Impression: 1: Progression of masslike density right upper thorax and pleural based density posteriorly in the mi d thorax. Follow-up CT chest recommended. Cannot exclude bronchogenic carcinoma. Reviewed, dictated and finalized at location B. Impression: 1: Progression of masslike density right upper thorax and pleural based density posteriorly in the mid thorax. Follow-up CT chest recommended. Cannot exclude bronchogenic carcinoma.
--- NOTE | 2021-04-19 11:57 | ECG_ITS ---
Measurements Intervals [place] Rate: 89 P: 50 MI: 151 QRS: 37 QRSD: 96 T: 46 QT: 371 QTc: 452 Interpretive Statements SINUS RHYTHM BORDERLINE ST-T WAVE ABNORMALITY- INF/HIGH LAT LEADS BASELINE ARTIFACT- II, III, AVR, AVF, V1-V6 BORDERLINE ECG Electronically Signed On 04-19-2021 13:05:55 CDT by Riky Carver D.O.
[2021-04-19 12:33] LABS: Basophils Percent Auto 0.2 % (0.2-1.2); Eosinophils Percent Auto 0.1 % (0-4.4); Hematocrit 30.3 % (42.0-52.0); Hemoglobin 9.4 g/dL (14.0-18.0); Immature Granulocyte Absolute 0.04 K/mm3 (0.00-0.031); Immature Granulocyte Percent A 0.3 % (0-0.5); Lymphocytes Absolute Auto 0.66 K/mm3 (0.9-3.2); Lymphocytes Percent Auto 5.4 % (18.3-44.2); Mean Corpuscular Hemoglobin 28.3 pg (26-34); Mean Corpuscular Volume 91.3 fl (80-100); Mean Platelet Volume 8.4 fl (7.4-10.4); Monocytes Absolute Auto 0.6 K/mm3 (0.1-0.6); Neutrophils Absolute Auto 10.8 K/mm3 (1.3-6.7); Platelet Count Result 437 k/mm3 (150-375); Red Blood Count 3.32 M/mm3 (4.6-6.20); Red Cell Distribution Width 18.3 % (11.5-14.5); White Blood Count 12.1 K/mm3 (4.5-10.0)
--- NOTE | 2021-04-19 12:39 | ED.GENADULT ---
HPI - General Adult General Chief complaint: Weakness Stated complaint: WEAKNESS Time Seen by Provider: 04/19/21 12:21 Source: patient, family and RN notes reviewed History of Present Illness HPI narrative: Patient is 56 years old white male brought to the emergency room by his mom from home who is telling me that patient been weak and lethargic over the last few days. Complaining of pain different parts of his body, different than before, like the back of the neck, chest and abdomen, also he cannot get his thoughts together, long hours of sleep, poor appetite. History of lung cancer with bone metastasis, stage IV, hypertension, hyperlipidemia, diabetes, coronary artery disease, duodenal ulcer, bipolar, DNA. Patient is status post 10 radiation therapy at [facility], scheduled for vitamin B12 infusion tomorrow. Patient currently on oxycodone, also on palliative care, Related Data Home Medications Medication Instructions Recorded Confirmed amlodipine 5 mg PO DAILY 03/15/21 04/19/21 aripiprazole [Abilify] See Rx Instructions .ROUTE .COMPLEX 03/15/21 04/19/21 aripiprazole [Abilify] See Rx Instructions .ROUTE .COMPLEX 03/15/21 04/19/21 aspirin 81 mg PO DAILY 03/15/21 04/19/21 atorvastatin 40 mg PO HS 03/15/21 04/19/21 citalopram 20 mg PO DAILY 03/15/21 04/19/21 clonidine HCl 0.1 mg PO BID PRN 03/15/21 04/19/21 clopidogrel 75 mg PO DAILY 03/15/21 04/19/21 hydroxyzine HCl 25 mg PO BID PRN 03/15/21 04/19/21 metformin 500 mg PO BID 03/15/21 04/19/21 metoprolol succinate 50 mg PO DAILY 03/15/21 04/19/21 nifedipine 60 mg PO DAILY 03/15/21 04/19/21 trazodone 50 mg PO HS PRN 03/15/21 04/19/21 Allergies Allergy/AdvReac Type Severity Reaction Status Date / Time No Known Allergies Allergy Verified 04/19/21 14:15 Review of Systems Review of Systems: ROS unobtainable: Yes unobtainable due to medical condition and unobtainable due to mental status PMFSH Past Medical History Medical History Acute blood loss anemia Acute GI bleeding Anemia Back pain Bipolar disorder Coronary artery disease History of stents. Duodenal ulcer Hypertension Lung cancer metastatic to bone Lung mass Melena Metastasis NSAID induced gastritis Tobacco abuse Type 2 diabetes mellitus Surgical History Surgical History History of heart artery stent Social History Social History Social History: The patient lives in [place] and is currently staying with his mother. He is on disability. Long-time smoker, about a pack a day for at least 40 years. Previously drank about a 12 pack of beer a day however he has not drank in months. No illicit substance abuse. He designates his sister Em and his mother Maude Zambrano as his surrogate decision maker. Code status: Full code. Smoking status: Former smoker Smoking end date: 01/26/21 Gender identity (if verbalized by the patient): Male Spiritual care concerns: No Exam Narrative: Exam Narrative: General appearance: Well-developed, well-nourished, awake, oriented to his name only, Skin: Pale and diaphoretic Head: Normocephalic, nontraumatic Eyes: Clear conjunctiva ENT: Oropharynx normal, ears normal, nose normal Neck: Supple, nontender Chest and respiratory: Airway patent, no respiratory distress, no accessory muscle use Heart: Regular rate/rhythm Abdomen: Soft, nontender, no organomegaly, quiet bowel sounds Vascular: Normal peripheral pulses, normal capillary refill. Musculoskeletal: Normal range of motion, nontender back Neurologic: Alert and oriented to his name only
[2021-04-19 12:45] LABS: Alanine Aminotransferase 63 U/L (4-50); Alkaline Phosphatase 315 U/L (38-126); Anion Gap 4 mmol/L (8-16); Aspartate Amino Transferase 85 U/L (17-59); Bilirubin,Total 0.6 mg/dL (0.2-1.3); Blood Urea Nitrogen 15 mg/dL (9-20); Calcium 10.2 mg/dL (8.4-10.2); Carbon Dioxide 38 mmol/L (22-30); Chloride 96 mmol/L (98-107); Estimated CRCL calculation 119 ml/min; Estimated Glomerular Filt Rate > 60; Glucose 129 mg/dL (75-110); Potassium 2.9 mmol/L (3.4-5.0); Sodium 138 mmol/L (137-145)
[2021-04-19] MEDS: HYDROmorphone HCL INJ (*CRX) 1 MG/ML SYR 0.5 MG IV PUSH (13:12)
[2021-04-19] MEDS: ONDANSETRON INJ 4 MG/2 ML VIAL IV PUSH (13:13)
[2021-04-19] MEDS: SODIUM CHLORIDE 0.9% IV 1,000 ML 999 ML IV CONT ×2 (13:13→14:45)
[2021-04-19 13:29] LABS: Add Urine Microscopic? YES; Appearance Urine Clear (Clear); Bilirubin Urine Negative (Negative); Blood Urine Negative (Negative); Color Urine Yellow (Yellow); Glucose Urine UA Negative (Negative); Ketones Urine Trace mg/dL (Negative); Leukocyte Esterase Ur Negative LEU/UL (Negative); Mucus Urine Rare /lpf; Nitrate Urine Negative (Negative); Protein Urine Negative (Negative); RBC Urine 0-2 /hpf (0-2); Specific Grav Ur 1.017 (1.001-1.035); Squamous Epithelial Cell Urine Rare /hpf (Few); WBC Urine 0-3 /hpf
[2021-04-19] MEDS: POTASSIUM CHLORIDE 20 MEQ PACKET (FOR LIQUID) 40 MEQ PO (15:13)
--- NOTE | 2021-04-19 17:44 | PC.NURSE ---
Attempted to call report to [phone], IP RN will call this RN back
--- NOTE | 2021-04-19 17:50 | PC.NURSE ---
report called to Carola FLORES
--- NOTE | 2021-04-19 19:43 | ADMGEN ---
This patient, Maykel Zambrnao, was admitted to [facility] S[facility] Room 301-01 at 1905. Patient/family oriented to hospital policies and general routines including ID bracelet, bed and alarms, visiting hours, pain management, procedures, bathroom and other care routines, personal items, smoking policy, room service/diet, and visiting hours. Information on how to activate the Rapid Response Team has been discussed. Patient/Family are encouraged to report perceived risks to care and to ask questions if they do not understand what they are told or what they should do.
[2021-04-19] MEDS: SODIUM CHLORIDE 0.9% IV 1,000 ML 125 ML IV CONT (22:00)
[2021-04-20] VITALS (9 sets, daily range): BP systolic 127–150; BP diastolic 70–89; PULSE 88–105; RESP 14–20; TEMP 36.6–36.8; O2SAT 93–99; BMI 24.0
--- NOTE | 2021-04-20 02:12 | PC.NURSE ---
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 This nurse went to go check on patient. Patient was removing his telemetry leads. Patients Port-a-cath was laying in the bed next to patient and IV access was removed. Patient is alert only to self and appeared confused when I asked him what he was doing. Karo Plascencia notified of incident.
[2021-04-20 04:44] LABS: Anion Gap 4 mmol/L (8-16); Blood Urea Nitrogen 12 mg/dL (9-20); Calcium 9.3 mg/dL (8.4-10.2); Carbon Dioxide 33 mmol/L (22-30); Chloride 102 mmol/L (98-107); Estimated CRCL calculation 132 ml/min; Estimated Glomerular Filt Rate > 60; Glucose 143 mg/dL (75-110); Potassium 3.4 mmol/L (3.4-5.0); Sodium 139 mmol/L (137-145)
[2021-04-20] MEDS: SODIUM CHLORIDE 0.9% IV 1,000 ML 125 ML IV CONT ×2 (05:54→18:09)
--- NOTE | 2021-04-20 09:07 | PM.IMHP ---
H&P: HPI History of Present Illness Date/Time: 04/20/21 09:07 Chief Complaint: weakness Narrative: Pt is a 56 year old male with known stage IV cancer who presented emergency room for weakness and lethargy. The patient has baseline bipolar disorder and has delusions at baseline according to the family. The patient thinks is here for mental problems but cannot explain further. He says he has an oncologist but does not know who he is and he is someone somewhere . He understands that his cancer is not curable and has not decided if he wants to go forward with chemo treatment. He has had palliative radiation to his spine for back pain which has helped. Today he tells me he has no chest pain, shortness of breath, nausea, vomiting, diarrhea but does have some constipation. His pain is much better than admission and rates it as a 8/10. He says he often hears things and sees things that are not there. He hears voices but they do not tell him to harm himself. I spoke with the sister who states that his mental status is pretty much at his baseline but his mother does not agree. The mother is the POA who should be her later today and I will speak with her as I was not able to get a hold of her. I was able to get a hold of the sister who provided me with some information. The main complaint from her is that the patient has been weak and more tired lately. Review of Systems Review of Systems: All systems reviewed & are unremarkable except as noted in HPI and below PMFSH Past Medical History Medical History Acute blood loss anemia Acute GI bleeding Anemia Back pain Bipolar disorder Coronary artery disease History of stents. Duodenal ulcer Hypertension Lung cancer metastatic to bone Lung mass Melena Metastasis NSAID induced gastritis Tobacco abuse Type 2 diabetes mellitus Surgical History Surgical History History of heart artery stent Family History Family History (Updated 04/19/21 @ 20:37 by Jacqueline Joiner RN) Father Throat cancer Grandparent Melanoma Colon cancer Other Lung cancer Mother Diabetes mellitus Social History Social History (Updated 04/20/21 @ 10:26 by Aleyda Garcia PA-C) Social History: The patient lives in [place] and is currently staying with his mother. He is on disability. Long-time smoker, about a pack a day for at least 40 years. Previously drank about a 12 pack of beer a day however he has not drank in months. No illicit substance abuse. He designates his sister Em and his mother Maude Zambrano as his surrogate decision maker although the sister says his mother is just the POA. Code status: Full code. Smoking packs per day: 2 Smoking cigarettes per day: 40.0 Years smoked: 39 Smoking pack-years: 78.00 Smoking status: Former smoker Tobacco type: cigarettes Second hand tobacco smoke exposure: No Smoking end date: 01/26/21 Alcohol intake: former Substance use: never Other substance usage details: Patients mother, tamiko Santoro patient was a heavy drinker. Gender identity (if verbalized by the patient): Male Spiritual care concerns: No Meds Home Medications and Allergies Home Medications Medication Instructions Recorded Confirmed Type amlodipine 5 mg PO DAILY 03/15/21 04/19/21 History aripiprazole [Abilify] See Rx Instructions .ROUTE .COMPLEX 03/15/21 04/19/21 History aripiprazole [Abilify] See Rx Instructions .ROUTE .COMPLEX 03/15/21 04/19/21 History aspirin 81 mg PO DAILY 03/15/21 04/19/21 History atorvastatin 40 mg PO HS 03/15/21 04/19/21 History citalopram 20 mg PO DAILY 03/15/21 04/19/21 History clonidine HCl 0.1 mg PO BID PRN 03/15/21 04/19/21 History clopidogrel 75 mg PO DAILY 03/15/21 04/19/21 History hydroxyzine HCl 25 mg PO BID PRN 03/15/21 04/19/21 History metformin 500 mg PO BID 03/15/21 04/19/21 History me
[2021-04-20] MEDS: amLODIPine BESYLATE 5 MG TABLET PO (11:36)
[2021-04-20] MEDS: ARIPiprazole 5 MG TABLET BY MOUTH (11:45)
[2021-04-20] MEDS: METOPROLOL SUCCINATE EXT REL 50 MG TABCR PO (11:45)
[2021-04-20] MEDS: CITALOPRAM HYDROBROMIDE 20 MG TABLET PO (11:45)
[2021-04-20] MEDS: ASPIRIN 81 MG CHEWABLE TABLET PO (11:45)
[2021-04-20] MEDS: PANTOPRAZOLE 40 MG TABLET PO (11:46)
[2021-04-20] MEDS: ARIPiprazole 2 MG TABLET BY MOUTH (11:46)
[2021-04-20] MEDS: CLOPIDOGREL BISULFATE 75 MG TABLET PO (11:46)
[2021-04-20] MEDS: metFORMIN HCL 500 MG TABLET PO ×2 (11:46→18:10)
[2021-04-20] MEDS: oxyCODONE HCL (*CRX) 5 MG TAB IR 15 MG PO ×2 (11:53→22:24)
[2021-04-20] MEDS: POTASSIUM CHLORIDE 20 MEQ TABLET PO (11:53)
[2021-04-20 12:18] LABS: Glucose Point of Care 199 mg/dl (65-105)
--- NOTE | 2021-04-20 12:55 | PDONCCN ---
HPI - Date of Consult Date/Time: 04/20/21 12:55 Requesting Physician: Aleyda Garcia PA-C Primary Care Provider: Jayce Long, - Consult Narrative Reason for consult: Metastatic non-small cell lung cancer Narrative: Maykel Zambrano is a 56 year old male who was diagnosed with metastatic non-small cell lung cancer with bone involvement and received radiation therapy to the lumbar spine and sacral spine previously. Unfortunately he was not able to start chemotherapy due to significant pain that was causing him with difficulty in ambulation and could not come to the office to start chemotherapy. He was finally seen in the office just last week. Patient was scheduled to start chemotherapy next week but came into the hospital with increasing generalized weakness and mental status changes. She has been complaining of diffuse muscular skeletal pain as well as development of the not and is sub sternum area. Patient was found to be hypokalemic and anemic. CT scan showed progressive metastatic adenocarcinoma with enlargement of the right upper lobe mass and worsening of the bone metastasis with pathological fracture and development of right pleural effusion and liver metastasis along with thoracic and abdominal lymphadenopathy. He seems to be quite confused at this time as well. His pain seems like under control. Review of Systems - Review of Systems All systems reviewed & are unremarkable except as noted in [facility] and [facility] Medical History: Medical History (Last Reviewed 04/20/21 @ 10:25 by Aleyda Garcia PA-C) Acute blood loss anemia Acute GI bleeding Anemia Back pain Bipolar disorder Coronary artery disease History of stents. Duodenal ulcer Hypertension Lung cancer metastatic to bone Lung mass Melena Metastasis NSAID induced gastritis Tobacco abuse Type 2 diabetes mellitus Surgical History: Surgical History (Last Reviewed 04/19/21 @ 12:41 by Ryan Elizalde MD) History of heart artery stent Family History: Family History (Last Updated 04/19/21 @ 20:37 by Jacqueline Joiner RN) Father Throat cancer Grandparent Melanoma Colon cancer Other Lung cancer Mother Diabetes mellitus - Social History Social History: Social History (Last Updated 04/20/21 @ 10:26 by Aleyda Garcia PA-C) Gender Identity: Gender identity (if verbalized by the patient): Male Alcohol Use: Alcohol intake: former Substance Use: Substance use: never Other substance usage details: Patients mother, Maude, tamiko patient was a heavy drinker. Others: Spiritual care concerns: No Smoking Status: Smoking status: Former smoker Tobacco type: cigarettes Second hand tobacco smoke exposure: No Smoking end date: 01/26/21 Approximate Smoking End Date: 01/26/2021 Smoking Pack-years: Smoking packs per day: 2 Smoking cigarettes per day: 40.0 Years smoked: 39 Smoking pack-years: 78.00 Meds Home Medications Medication Instructions Recorded Confirmed Type amlodipine 5 mg PO DAILY 03/15/21 04/19/21 History aripiprazole [Abilify] See Rx Instructions .ROUTE .COMPLEX 03/15/21 04/19/21 History aripiprazole [Abilify] See Rx Instructions .ROUTE .COMPLEX 03/15/21 04/19/21 History aspirin 81 mg PO DAILY 03/15/21 04/19/21 History atorvastatin 40 mg PO HS 03/15/21 04/19/21 History citalopram 20 mg PO DAILY 03/15/21 04/19/21 History clonidine HCl 0.1 mg PO BID PRN 03/15/21 04/19/21 History clopidogrel 75 mg PO DAILY 03/15/21 04/19/21 History hydroxyzine HCl 25 mg PO BID PRN 03/15/21 04/19/21 History metformin 500 mg PO BID 03/15/21 04/19/21 History metoprolol succinate 50 mg PO DAILY 03/15/21 04/19/21 History docusate sodium [Colace] 100 mg PO BID PRN #60 cap 03/20/21 04/19/21 Rx omeprazole 40 mg capsule,delayed 40 mg PO DAILY #30 cap 03/20/21 04/19/21 Rx release cyclobenzaprine 5 mg PO TID 04/19/21 04/19/21 History gabapentin 300 mg PO H
--- NOTE | 2021-04-20 13:00 | PCNSR ---
On 04/20/21, the student,Sveta Tirado, provided care and completed [facility] documentation on this patient. I have reviewed the student's documentation and agree with the findings.
--- NOTE | 2021-04-20 13:17 | PCOTNOTE ---
Attempted OT evaluation, but unable to complete as patient gone for a MRI. Will attempt again at another time.
[2021-04-20 17:41] LABS: Glucose Point of Care 225 mg/dl (65-105)
[2021-04-20] MEDS: CYCLOBENZAPRINE HCL 5 MG TABLET PO (18:10)
[2021-04-20] MEDS: INSULIN ASPART (*BKC) 100 UNITS/ML SUB-Q (18:11)
[2021-04-20] MEDS: GABAPENTIN 300 MG CAPSULE PO (21:51)
[2021-04-20 22:24] LABS: Glucose Point of Care 208 mg/dl (65-105)
--- NOTE | 2021-04-21 | ECHO_ITS ---
Patient Info Name: Maykel Zambrano Age: 56 years : 1965 Gender: Male Ht: 68 in Wt: 158 lbs BSA: 1.86 m2 HR: 93 bpm BP: 153 / 82 mmHg Technical Quality: Good Exam Date: 04/21/2021 2:30 PM Exam Location: [facility] Patient Status: Inpatient Admit Date: 04/20/2021 Staff Ordering Physician: Aleyda Garcia PA-C Laborer Tree Tapping: Emanuel Ureña RDCS, RT Attending Provider: Aleyda Garcia PA-C Referring Physician: Radha HARRISON; Exam Type: CA echo doppler w bubble study Study Info Indications I63.239 - Cerebral infarction due to unspecified occlusion or stenosis of unspecified carotid arteries Complete two-dimensional, color flow and Doppler transthoracic echocardiogram is performed. Strain analysis performed. Summary 1. Complete two-dimensional, color flow and Doppler transthoracic echocardiogram is performed. 2. Left ventricular chamber dimension is normal. 3. Left ventricular systolic function is hyperdynamic, estimated at >70%. 4. The left ventricular diastolic function is normal. 5. E/e' 9 is minimally elevated. 6. Global longitudinal strain is normal at -20.5%. Left Ventricle E/e' 9 is minimally elevated. Global longitudinal strain is normal at -20.5%. Left ventricular chamber dimension is normal. Left ventricular systolic function is hyperdynamic, estimated at >70%. The left ventricular diastolic function is normal. Right Ventricle Right ventricular systolic function is normal with normal TAPSE 1.9 cm.. Right ventricular chamber dimension is normal. Left Atria Left atrial chamber dimension is normal. Right Atria Right atrial chamber dimension is normal. Atrial Septum Agitated saline injection with and without valsalva maneuver opacified right cardiac chambers without shunt to left side cardiac chambers. Intact interatrial septum visualized by agitated saline imaging. Aortic Valve The aortic valve is trileaflet. There is no aortic valve stenosis. There is no aortic valve regurgitation. Pulmonic Valve There is no pulmonic regurgitation. Mitral Valve There is no mitral valve stenosis. There is no mitral valve regurgitation. Tricuspid Valve There is no tricuspid valve regurgitation. Pericardium/Pleural There is no pericardial effusion. Inferior Vena Cava Normal inferior vena cava with >50% collapse upon inspiration consistent with normal right atrial pressure, 5 mmHg. Aorta The aortic root size at the sinus of Valsalva is normal. Left Ventricular Outflow Tract Name Value Normal LVOT 2D LVOT Diameter 1.9 cm LVOT Doppler LVOT Peak Velocity 143 cm/s LVOT Peak Gradient 8 mmHg LVOT Mean Gradient 4 mmHg LVOT VTI 25 cm LVOT VTI/AV VTI Ratio 1.0 LVOT Stroke Volume 74 ml LVOT CO 6.8 l/min LVOT CI 3.7 l/min/m2 Mitral Valve Name
--- NOTE | 2021-04-21 02:18 | ADMGEN ---
This patient, Maykel Zambrano, was admitted to [facility] Room 301-01. Patient/family oriented to hospital policies and general routines including ID bracelet, bed and alarms, visiting hours, pain management, procedures, bathroom and other care routines, personal items, smoking policy, room service/diet, and visiting hours. Information on how to activate the Rapid Response Team has been discussed. Patient/Family are encouraged to report perceived risks to care and to ask questions if they do not understand what they are told or what they should do.
--- NOTE | 2021-04-21 02:18 | PC.NURSE ---
Patient stated he was seeing bodies in his room, disconnected tele monitor leads and had a bowel movement in his water glass. He removed his IV access for the second time since admission. He keeps attempting to remove his port a cath access. It was approved by the tank house operator that his mother could stay with him if needed. She was called this evening at his currently at the bedside
[2021-04-21 04:00] VITALS: PULSE 99
[2021-04-21 05:44] LABS: Hematocrit 26.3 % (42.0-52.0); Hemoglobin 8.2 g/dL (14.0-18.0)
[2021-04-21 05:54] LABS: Anion Gap 3 mmol/L (8-16); Blood Urea Nitrogen 12 mg/dL (9-20); Calcium 9.5 mg/dL (8.4-10.2); Carbon Dioxide 34 mmol/L (22-30); Chloride 103 mmol/L (98-107); Estimated CRCL calculation 132 ml/min; Estimated Glomerular Filt Rate > 60; Glucose 134 mg/dL (75-110); Magnesium 1.7 mg/dL (1.6-2.3); Potassium 3.3 mmol/L (3.4-5.0); Sodium 140 mmol/L (137-145)
[2021-04-21 06:00] VITALS: BP 153/82; PULSE 98; RESP 20; TEMP 36.6; O2SAT 94
[2021-04-21 06:05] LABS: Ammonia < 9 umol/L (9-30)
[2021-04-21 06:50] LABS: Thyroid Stimulating Hormone Reflex 0.431 uIU/mL (0.465-4.68)
[2021-04-21 08:00] VITALS: PULSE 100
[2021-04-21 08:00] LABS: Glucose Point of Care 155 mg/dl (65-105)
[2021-04-21] MEDS: metFORMIN HCL 500 MG TABLET PO (08:14)
[2021-04-21] MEDS: amLODIPine BESYLATE 5 MG TABLET PO (08:15)
[2021-04-21] MEDS: METOPROLOL SUCCINATE EXT REL 50 MG TABCR PO (08:15)
[2021-04-21] MEDS: CLOPIDOGREL BISULFATE 75 MG TABLET PO (08:15)
[2021-04-21] MEDS: PANTOPRAZOLE 40 MG TABLET PO (08:15)
[2021-04-21] MEDS: ARIPiprazole 2 MG TABLET BY MOUTH (08:15)
[2021-04-21] MEDS: ARIPiprazole 5 MG TABLET BY MOUTH (08:15)
[2021-04-21] MEDS: ASPIRIN 81 MG CHEWABLE TABLET PO (08:15)
[2021-04-21] MEDS: CITALOPRAM HYDROBROMIDE 20 MG TABLET PO (08:15)
[2021-04-21] MEDS: oxyCODONE HCL (*CRX) 5 MG TAB IR 15 MG PO (08:18)
[2021-04-21 08:24] VITALS: O2SAT 93
[2021-04-21 08:55] LABS: Free T4 Free Thyroxine Reflex 1.81 ng/dL (0.78-2.19)
--- NOTE | 2021-04-21 10:20 | PCNFU ---
Nutrition Follow-Up Complete: Nutrition Diagnosis: Inadequate oral intake related to dementia and poor appetite as evidenced by a weight loss of 24lbs within the last month. Nutrition Goal:Have patient meet estimated nutritional needs. Goal is in progress, patient is consuming only 10% of his meals. Nutrition recommendation: Continue with Regular diet and Ensure Enlive (350 calories and 20 grams of protein) supplement, but increase supplement from BID to TID. Last recorded weight is 71.9 kg. Bowel Motility: Last documented on 04/21. Labs Reviewed: Hgb(8.2), Hct(26.3), K(3.3), Cr(0.5), Glu(134) Meds Noted:Zofran, Normal Saline at 125mls/hr, Norvasc, Aripiprazole, Celexa, Plavix, Flexeril, Colace, Novolog, Protonix, Glucophage, Neurontin, Metoprolol Succinate, Magnesium Hydroxide, Catapres Additional Notes: Patient skin is within normal limits, no causes of concern documented. Agree with diet orders, just increase supplement frequency since patient is eating very little. Will follow up in 3 days.
[2021-04-21 11:24] LABS: Total Triiodothyronine (T3) 0.62 NG/ML (0.97-1.69)
--- NOTE | 2021-04-21 11:56 | PCNSR ---
On 04/21/21, the student,Sveta Tirado, provided care and completed [facility] documentation on this patient. I have reviewed the student's documentation and agree with the findings.
[2021-04-21 12:00] VITALS: PULSE 90
[2021-04-21 12:16] LABS: Hematocrit 27.6 % (42.0-52.0); Hemoglobin 8.6 g/dL (14.0-18.0)
[2021-04-21 12:19] LABS: Glucose Point of Care 122 mg/dl (65-105)
[2021-04-21 12:40] LABS: Transferrin 108 mg/dL (206-381)
[2021-04-21] MEDS: POTASSIUM CHLORIDE 20 MEQ TABLET 40 MEQ PO (12:48)
[2021-04-21] MEDS: CYANOCOBALAMIN INJ 1,000 MCG/ML VIAL 1000 MCG IM (12:49)
[2021-04-21] MEDS: CENTRAL LINE FLUSH 10 ML IV PUSH (12:50)
[2021-04-21 13:40] LABS: Folic Acid 9.9 ng/mL (2.76->20)
--- NOTE | 2021-04-21 13:57 | PCOTNOTE ---
OT evaluation attempted. Patient meeting with oncologist. Will attempt at later time
[2021-04-21 14:04] LABS: Iron 23 ug/dL (49-181); Percent Iron Saturation 13 % (20-50)
--- NOTE | 2021-04-21 15:58 | WPDONCPN ---
Progress Note: A/P (1) Lung cancer metastatic to bone Code(s): C34.90 - Malignant neoplasm of unspecified part of unspecified bronchus or lung; C79.51 - Secondary malignant neoplasm of bone Status: Acute Assessment and plan: Widely metastatic non-small cell lung cancer. This is unfortunate 56-year-old male who was recently diagnosed with metastatic lung cancer status post recent vertebral body biopsy. He received radiation therapy treatment to the sacral and lumbar spine and pain got under some control. He was not able to start chemotherapy due to difficulty ambulation. Plan was to start chemotherapy next week. Patient now came into the hospital and the CT scan showed worsening of the disease. Dr. Kumar has had a long discussion with patient mother about chemotherapy versus hospice care. Patient is expressing a desire to receive treatment, and family is supportive of that. Will make sure he has an appointment to see us next week to discuss starting therapy with carbo/pem/pembro. (2) Altered mental status Code(s): R41.82 - Altered mental status, unspecified Status: Acute Assessment and plan: Patient seems to be confused and likely developing hepatic encephalopathy. Brain MRI negative for metastatic disease. - Time Spent With Patient Total time spent is greater than 50% in coordination of care (as documented) at patient's floor/unit and/or counseling patient: 25 - 35 minutes Subjective Interval history: Patient intermittently confused, family at bedside, reports he is now expressing desire to pursue treatment with chemotherapy. Patient responds to and follows commands and prompts, oriented to location, self and time. Review of Systems - Review of Systems All systems reviewed & are unremarkable except as noted in HPI and bel Exam Vital signs: Temp Pulse Resp BP Pulse Ox 36.6 C 90 20 153/82 H 93 04/21/21 06:00 04/21/21 12:00 04/21/21 06:00 04/21/21 06:00 04/21/21 08:24 - Constitutional no acute distress, chronically ill appearing, cooperative, somnolent - Routine HEENT Exam Head: Present: atraumatic, normocephalic Eye: Present: EOMI ENT: Present: mucous membranes dry. Absent: mucous membranes moist - Routine Respiratory Exam Present: CTAB - Routine Cardiovascular Exam Cardiovascular: Present: RRR - Routine Abdominal Exam Present: diminished bowel sounds, firm - Routine Neurological Exam Present: alert, oriented X3 - Routine Psychiatric Exam Present: normal affect PN: Objective Data - Labs CBC & Chem 7: 04/21/21 11:53 04/21/21 05:23 Labs: Laboratory Results - last 24 hr 04/20/21 04/20/21 04/21/21 17:35 22:19 05:23 Hgb Hct Sodium 140 Potassium 3.3 L Chloride 103 Carbon Dioxide 34 H Anion Gap 3 L BUN 12 Creatinine 0.50 L Estim Creat Clear Calc 132 Estimated GFR > 60 Glucose 134 H POC Capillary Glucose 225 H 208 H Calcium 9.5 Magnesium 1.7 Iron TIBC Transferrin Ammonia Vitamin B12 Folate TSH (Reflex) Free T4 Total T3 04/21/21 04/21/21 04/21/21 05:23 05:23 05:23 Hgb Hct Sodium Potassium Chloride Carbon Dioxide Anion Gap BUN Creatinine Estim Creat Clear Calc Estimated GFR Glucose POC Capillary Glucose Calcium Magnesium Iron TIBC Transferrin Ammonia < 9 L Vitamin B12 Folate TSH (Reflex) 0.431 L Free T4 1.81 Total T3 04/21/21 04/21/21 04/21/21 05:23 05:24 07:57 Hgb 8.2 L Hct 26.3 L Sodium Potassium Chloride Carbon Dioxide Anion Gap BUN Creatinine Estim Creat Clear Calc Estimated GFR Glucose POC Capillary Glucose 155 H Calcium Magnesium Iron TIBC Transferrin Ammonia Vitamin B12 Folate TSH (Reflex) Free T4 Total T3 0.62 L 04/21/21 04/21/21 04/21/21 11:53 11:53 11:53 Hgb 8.6 L
[2021-04-21 16:02] LABS: Glucose Point of Care 157 mg/dl (65-105)
--- NOTE | 2021-04-21 16:10 | PM.DS ---
DS: Admitting Diagnosis Admitting Diagnosis Admitting Diagnosis: metastatic cancer, cVA DS: Discharge Diagnosis Discharge Diagnosis (1) Acute CVA (cerebrovascular accident): Code(s): I63.9 - Cerebral infarction, unspecified Status: Acute Assessment and Plan: MRI showing punctate acute infarcts in the right frontal lobe, left parietal lobe, left occipital lobe, and right cerebellum. -could be causing his worsening mental state along with his terminal cancer and bipolar disorder -he is already on aspirin and Plavix due to cardiac disease -spoke with neurology who recommended continuing aspirin and Plavix as well as atorvastatin -I spoke to the mother about the plan of care. they are going to have a family meeting and decide if they are going to go hospice. He is already mostly bed bound but he has 24 hour care and they help him up to commode. Declined request for PT/OT at this time. If they do not go hospice I have recommended they get a heart monitor to check for occult afib and they agreed. (2) Lung cancer metastatic to bone: Code(s): C34.90 - Malignant neoplasm of unspecified part of unspecified bronchus or lung; C79.51 - Secondary malignant neoplasm of bone Status: Acute Assessment and Plan: CT with evidence of wide spread disease likely causing his increased pain -pain minimal at d/c. She request refills on his oxycodone and flexeril. I will give them enough to get through the weekend and she can f/u with Dr. Kumar for further refills -Pt sees Dr. Kumar and is contemplating starting chemotherapy. He has done radiation for back pain. See above (3) Weakness: Code(s): R53.1 - Weakness Status: Acute Assessment and Plan: 2/2 to above (4) Pleural effusion on right: Code(s): J90 - Pleural effusion, not elsewhere classified Status: Acute Assessment and Plan: 2/2 to above -Pt is not hypoxic, I don't think we need a thoracentesis at this time but i spoke with his mom who is aware if he starts having trouble breathing this can be done. (5) Cancer, metastatic to liver: Code(s): C78.7 - Secondary malignant neoplasm of liver and intrahepatic bile duct Status: Acute Assessment and Plan: Wide spread CT reads: Interval progression of metastatic adenocarcinoma as evidenced by significant enlargement of the right upper lobe mass, significant worsening of widespread osseous metastatic disease with pathologic fractures, development of malignant right pleural effusion, development of innumerable liver metastases, and thoracic and upper abdominal lymphadenopathy. (6) Pathologic fracture: Qualifiers: Pathology associated with fracture: neoplastic disease Code(s): M84.40XA - Pathological fracture, unspecified site, initial encounter for fracture Status: Acute Assessment and Plan: Due to cancer and likely causing his pain -Continue pain medication (7) Bipolar disorder: Code(s): F31.9 - Bipolar disorder, unspecified Status: Acute Assessment and Plan: Chronic -Continue clonidine, Abilify, hydroxyzine, and citalopram (8) Type 2 diabetes mellitus: Code(s): E11.9 - Type 2 diabetes mellitus without complications Status: Acute Assessment and Plan: Last glucose 157 -no hx of A1c -Continue home metformin, SSI and accuchecks (9) Hypertension: Code(s): I10 - Essential (primary) hypertension Status: Acute Assessment and Plan: Last bp 153/82 -continue home amlodipine and metoprolol (10) Anemia: Code(s): D64.9 - Anemia, unspecified Status: Acute Assessment and Plan: Hgb 8.6 and stable -No signs of bleeding (11) Elevated LFTs: Code(s): R79.89 - Other specified abnormal findings of blood chemistry Status: Acute Assessment and Plan: Likely due to advance cancer as there are multiple
--- NOTE | 2021-04-21 17:34 | PC.NURSE ---
Port de accessed and flushed with Heparin prior to removal. Unable to document on MAR due to being discharged out of computer prior to manager order.
[2021-04-21 18:48] LABS: Ferritin > 2000.00 ng/mL (11.1-264)
--- NOTE | 2021-05-03 10:25 | PC.NURSE ---
Blood cx are negative.
== END 2021-04-21 17:05 | disposition home or self-care (01) | DRG 64 ==
LOC: ANHED 14:43 → ANH3MEDSUR 16:36
PROVIDERS: Physician Assistant; Admitting Provider Family Medicine; Emergency Provider Emergency Medicine; PCP Internal Medicine; Visit Provider Internal Medicine
DX: I63.9 Cerebral infarction, unspecified (principal); K72.00 Acute and subacute hepatic failure without coma; C34.90 Malignant neoplasm of unspecified part of unspecified bronchus or lung; C79.51 Secondary malignant neoplasm of bone; J91.0 Malignant pleural effusion; C78.7 Secondary malignant neoplasm of liver and intrahepatic bile duct; M84.50XA Pathological fracture in neoplastic disease, unspecified site, initial encounter for fracture; R41.82 Altered mental status, unspecified; F31.9 Bipolar disorder, unspecified; I10 Essential (primary) hypertension; E78.5 Hyperlipidemia, unspecified; E11.42 Type 2 diabetes mellitus with diabetic polyneuropathy; I25.10 Atherosclerotic heart disease of native coronary artery without angina pectoris; D64.9 Anemia, unspecified; E87.6 Hypokalemia; Z79.02 Long term (current) use of antithrombotics/antiplatelets; Z79.82 Long term (current) use of aspirin; Z95.5 Presence of coronary angioplasty implant and graft; Z87.891 Personal history of nicotine dependence
CPT/HCPCS: 36415; 70450; 70553; 71046; 71260; 74177; 80048; 80053; 81001; 82140; 82607; 82728; 82746; 82948; 83540; 83550; 83735; 84439; 84443; 84466; 84480; 85014; 85018; 85025; 87040; 93005; 93306; 96361; 96365; 96366; 96375; 97110; 97161; 99285; A9270; A9577; G0378; J0131; J1170; J1642; J1815; J2405; J3420; J3480; J7030; Q9967